=== PATIENT | female | born 1965 | race African-American/Black ===

== ENCOUNTER 2017-01-19 10:34 | Inpatient (IN) | payer BC ==
[~2017-01-19] VITALS: Ht 165.1 cm; Wt 97.2 kg
[~2017-01-19 10:34] MED LIST: AMLO10TA2 PO; AMLO5TAB4 PO; ASPI1TAB30 PO; ASPI81TA2 PO; ATOR20TA58 PO; BUTA1TAB23 PO; LABE200T2 PO; LISI-334 PO; LISI1TAB7 PO; METO25TA4 PO; NITR0.4T SL; PREG75CA PO; RANI150T6 PO; SPIR25TA3 PO
[2017-01-19 11:26] LABS: BASO % 1 % (0-3); EOS % 1 % (0-3); HEMATOCRIT 37.1 % (36.0-47.0); HEMOGLOBIN 12.2 g/dL (12.0-15.5); LYMPH # 1.2 x10^3/uL (1.0-4.8); LYMPH % 22 % (24-48); MEAN CORPUSCULAR HEMOGLOBIN 28 pg (25-35); MEAN CORPUSCULAR HGB CONC 33 g/dL (31-37); MEAN CORPUSCULAR VOLUME 84 fL (79-100); MONO % 6 % (0-9); NEUT % 71 % (31-73); PLATELET COUNT 292 x10^3/uL (140-400); RED BLOOD COUNT 4.41 x10^6/uL (3.50-5.40); RED CELL DISTRIBUTION WIDTH 15.8 % (11.5-14.5); WHITE BLOOD COUNT 5.4 x10^3/uL (4.0-11.0)
[2017-01-19] MEDS ORDERED: METOCLOPRAMIDE HCL 10 MG/2 ML VIAL. IV ONE (11:30)
[2017-01-19] MEDS ORDERED: diphenhydrAMINE 50 MG/ML VIAL IVP ONE (11:30)
[2017-01-19] MEDS ORDERED: IV NORMAL SALINE 500ML BAG 500 ML IV ONE (11:30)
[2017-01-19] MEDS ORDERED: KETOROLAC TROMETHAMINE 30 MG/ML INJ. IV ONE (11:30)
[2017-01-19 11:32] LABS: CALCIUM 8.7 mg/dL (8.5-10.1); CREATININE 1.2 mg/dL (0.6-1.0); GFR 57.3; POTASSIUM 3.4 mmol/L (3.5-5.1)
--- NOTE | 2017-01-19 11:36 | EKG ---
[facility] [address] [place] [address] Test Date: 2017-01-19 Test Time: 11:01:52 Pat Name: ESTELLA WILSON Department: Room: Gender: F [employer]: : 1965 Requested By: KOREY THAKKAR Order Number: [id number] Reading MD: Hay Browne Measurements Intervals [facility] Rate: 75 P: 0 KS: 184 QRS: 27 QRSD: 78 T: 61 QT: 378 QTc: 425 Interpretive Statements SINUS RHYTHM Electronically Signed On 02-01-2017 15:34:17 CDT by Hay Browne
--- NOTE | 2017-01-19 11:59 | RAD ---
CT of the head without contrast, 01/19/2017: History: High blood pressure, headache Comparison is made to a study from 11/28/2015. The ventricles are within normal limits in size. There is no shift of the midline structures. There is no evidence of acute intracranial hemorrhage or mass effect. There is limited visualization of the left maxillary sinus, however, it is at least partially opacified. IMPRESSION: 1. No acute intracranial abnormality is detected. 2. Left maxillary sinusitis. PQRS Compliance Statement: One or more of the following individualized dose reduction techniques were utilized for this examination: 1. Automated exposure control 2. Adjustment of the mA and/or kV according to patient size 3. Use of iterative reconstruction technique
[2017-01-19] MEDS ORDERED: hydrALAZINE 20 MG/ML VIAL. IVP ONE (12:30)
--- NOTE | 2017-01-19 12:45 | PHYS DOC ---
Past Medical History Past Medical History: Fibromyalgia, GERD, Hypertension, Other Additional Past Medical Histor: chronic knee pain, irreg peiords Past Surgical History: Cholecystectomy, , Tubal ligation, Other Additional Past Surgical Histo: right meniscus tear Alcohol Use: None Drug Use: None Adult General Chief Complaint Chief Complaint: HYPERTENSION HPI HPI This is a 51-year-old female who is sent here from Dr. Palma's office for hypertension that is uncontrolled as well as an ongoing migraine headache. Dr. Palma wanted a full workup regarding her headache symptoms. Upon arrival, the patient is speaking in complete senses and in no acute distress. She states she' s been suffering from a migraine headache for the last 6 days that has not relieved. She is unable to take her Excedrin Migraine medicine because her primary doctor requested her not to take it. She states she is compliant with her usual blood pressure medications and she takes lisinopril, amlodipine, and labetalol. She denies any chest pain or shortness of breath. She rates her pain a "16 out of 10" on the pain scale. Review of Systems Review of Systems Constitutional: Denies fever or chills [] Eyes: Denies change in visual acuity, redness, or eye pain [] HENT: Denies nasal congestion or sore throat [] Respiratory: Denies cough or shortness of breath [] Cardiovascular: No additional information not addressed in HPI [] GI: Denies abdominal pain, nausea, vomiting, bloody stools or diarrhea [] : Denies dysuria or hematuria [] Musculoskeletal: Denies back pain or joint pain [] Integument: Denies rash or skin lesions [] Neurologic: Has headache, denies focal weakness or sensory changes [] Endocrine: Denies polyuria or polydipsia [] Current Medications Current Medications Current Medications Medications (Trade) Dose Ordered Sig/Monty Start Time Stop Time Status Last Admin Dose Admin Diphenhydramine HCl (Benadryl) 25 mg 1X ONCE 01/19/17 11:30 01/19/17 11:32 DC 01/19/17 11:49 25 MG Hydralazine HCl 10 mg 10 mg 1X ONCE 01/19/17 12:30 01/19/17 12:31 DC Ketorolac Tromethamine (Toradol) 30 mg 1X ONCE 01/19/17 11:30 01/19/17 11:32 DC 01/19/17 11:45 30 MG Metoclopramide HCl 10 mg 10 mg 1X ONCE 01/19/17 11:30 01/19/17 11:32 DC 01/19/17 11:49 10 MG Nicardipine HCl/ Sodium Chloride (Cardene/Iv Sodium Chloride 0.9% 250ml) 270 ml @ 0 mls/hr CONT PRN 01/19/17 13:15 Ondansetron HCl (Zofran) 4 mg PRN Q8HRS PRN 01/19/17 13:15 01/20/17 13:14 Sodium Chloride (Iv Sodium Chloride 0.9% 500ml Bag) 500 ml @ 500 mls/hr 1X ONCE 01/19/17 11:30 01/19/17 12:29 DC 01/19/17 11:52 500 MLS/HR Allergies Allergies Allergies Coded Allergies Type Severity Reaction Last Updated Verified No Known Drug Allergies 09/10/16 No Physical Exam Physical Exam Constitutional: Well developed, well nourished, no acute distress, non-toxic appearance. [] HENT: Normocephalic, atraumatic, bilateral external ears normal, oropharynx moist, no oral exudates, nose normal. [] Eyes: PERRLA, EOMI, conjunctiva normal, no discharge. [] Neck: Normal range of motion, no tenderness, supple, no stridor. [] Cardiovascular:Heart rate regular rhythm, no murmur [] Lungs & Thorax: Bilateral breath sounds clear to auscultation [] Abdomen: Bowel sounds normal, soft, no tenderness, no masses, no pulsatile masses. [] Skin: Warm, dry, no erythema, no rash. [] Back: No tenderness, no CVA tenderness. [] Extremities: No tenderness, no cyanosis, no clubbing, ROM intact, no edema. [] Neurologic: Alert and oriented X 3, normal motor function, normal sensory function, no focal deficits noted. [] Psychologic: Affect normal, judgement normal, mood normal. [] Current Patient Data Vital Signs Vital Signs Date Time Temp Pulse Resp B/P Pulse Ox O2 Delivery O2 Flow Rate FiO2 01/19/17 10:47 97.9 82 20 183/116 99 Room Air 97.9 Lab Values Laboratory Tests Test 01/19/17 11:12 White Blood Count 5.4x10^3/uL (4.0-11.0) Red Blood Count 4.41x10^6/uL (3.50-5.40) Hemoglobin 12.2g/dL (12.0-15.5) Hematocrit 37.1% (36.0-47.0) Mean Corpuscular Volume 84fL (79-100) Mean Corpuscular Hemoglobin 28pg (25-35) Mean Corpuscular Hemoglobin Concent 33g/dL (31-37) Red Cell Distribution Width 15.8% (11.5-14.5) H Platelet Count 292x10^3/uL (140-400) Neutrophils (%) (Auto) 71% (31-73) Lymphocytes (%) (Auto) 22% (24-48) L Monocytes (%) (Auto) 6% (0-9) Eosinophils (%) (Auto) 1% (0-3) Basophils (%) (Auto) 1% (0-3) Neutrophils # (Auto) 3.8x10^3uL (1.8-7.7) Lymphocytes # (Auto) 1.2x10^3/uL (1.0-4.8) Monocytes # (Auto) 0.3x10^3/uL (0.0-1.1) Eosinophils # (Auto) 0.0x10^3/uL (0.0-0.7) Basophils # (Auto) 0.0x10^3/uL (0.0-0.2) Sodium Level 140mmol/L (136-145) Potassium Level 3.4mmol/L (3.5-5.1) L Chloride Level 104mmol/L (98-107) Carbon Dioxide Level 24mmol/L (21-32) Anion Gap 12 (6-14) Blood Urea Nitrogen 17mg/dL (7-20) Creatinine 1.2mg/dL (0.6-1.0) H Estimated GFR (Cockcroft-Gault) 57.3 Glucose Level 211mg/dL (70-99) H Calcium Level 8.7mg/dL (8.5-10.1) Troponin I Quantitative 0.043ng/mL (0.000-0.055) Laboratory Tests 01/19/17 11:12 Laboratory Tests 01/19/17 11:12 EKG EKG EKG as interpreted by me shows a sinus rhythm with rate of 75 bpm. There are no evidence of any acute ischemic findings. This EKG does not meet STEMI criteria. Intervals are normal. There is no ectopy. Radiology/Procedures Radiology/Procedures CT of the head without contrast, 01/19/2017: History: High blood pressure, headache Comparison is made to a study from 11/28/2015. The ventricles are within normal limits in size. There is no shift of the midline structures. There is no evidence of acute intracranial hemorrhage or mass effect. There is limited visualization of the left maxillary sinus, however, it is at least partially opacified. IMPRESSION: 1. No acute intracranial abnormality is detected. 2. Left maxillary sinusitis. PQRS Compliance Statement: One or more of the following individualized dose reduction techniques were utilized for this examination: 1. Automated exposure control 2. Adjustment of the mA and/or kV according to patient size 3. Use of iterative reconstruction technique Course & Med Decision Making Course & Med Decision Making Pertinent Labs and Imaging studies reviewed. (See chart for details) 51-year-old female has uncontrolled hypertension despite receiving an IV dose of IV hydralazine. Her laboratory workup is fairly unremarkable. I will be admitting her for uncontrolled blood pressure and persisting headache symptoms. I discussed the case with the hospitalist, Dr. Palma, who agreed to accept the patient for further evaluation and treatment. Nicardipine drip was ordered and the patient was transferred to the [facility] for further evaluation. It is important to note that the patient has not had any chest pain while in the department although she did mention she had a small brief episode of chest pain while walking into the ER. She last had a cardiac catheterization back in September that was negative for any vessel disease. Her EKG was unremarkable. Her troponin was slightly above negative at 0.04 but has been elevated slightly elevated in the past. I will order repeat troponins for the floor and she will be admitted to the [facility] for further evaluation and treatment Dragon Disclaimer Dragon Disclaimer This electronic medical record was generated, in whole or in part, using a voice recognition dictation system. Departure Departure Impression: Primary Impression: Hypertensive urgency Additional Impression: Headache Disposition: 09 ADMITTED INPATIENT Admitting Physician: Other Condition: STABLE Referrals: MORRIS PALMA MD (PCP) Problem Qualifiers KOREY THAKKAR DO Jan 19, 2017 12:45
[2017-01-19] MEDS ORDERED: ONDANSETRON PF 4 MG/2 ML VIAL. IV PRN (13:15)
[2017-01-19] MEDS ORDERED: NICARDIPINE HCL 50 MG in IV NORMAL SALINE 250ML 250 ML IV PRN (13:15)
--- NOTE | 2017-01-19 14:33 | ACF ---
Admission Forms Criteria HYPERTENSION Clinical Indications for Admission to Inpatient Care ( Place "X" for any and all applicable criteria): Admission is indicated for ANY ONE of the following(1)(2)(3)(4): [ ]I. Hypertensive emergency, with evidence of acute and progressing target organ disease as indicated by ANY ONE of the following: [ ]a) Hypertensive encephalopathy (eg, confusion, altered mental status) [ ]b) Cerebral infarction [ ]c) Intracranial hemorrhage [ ]d) Myocardial ischemia or infarction [ ]e) Pulmonary edema [ ]f) Aortic dissection [ ]g) Seizure [ ]h) Acute renal insufficiency [ ]i) Papilledema [ ]j) Microangiopathic hemolytic anemia [ ]II. Adrenergic crisis (eg, severe hypertension due to pheochromocytoma crisis, cocaine or amphetamine intoxication, or clonidine withdrawal) [X]III. Severe hypertension (SBP greater than 180 mmHg or DBP greater than 110 mmHg or greater than the 95th percentile for age, gender, and height in pediatric patients) that cannot be controlled (eg, to SBP less than 160 mmHg and DBP less than 100 mmHg in adults) by treatment with oral medication in emergency department or observation care Extended stay beyond goal length of stay may be needed for(11)(12)(13): [ ]a) Persistent hypertensive encephalopathy [ ]b) Continuation of pulmonary edema [ ]c) Recurring or persistent severe hypertension [ ]d) Target organ damage (eg, angina, stroke, aortic dissection) [ ]e) Associated renal insufficiency The original [facility] content created by [employer] has been revised. The portions of the content which have been revised are identified through the use of italic text or in bold, and [facility] has neither reviewed nor approved the modified material. All other unmodified content is copyright [facility]. Please see references footnoted in the original [facility] edition 2016 Admission Criteria Met?: Yes LES TOMLIN Jan 19, 2017 14:33
[2017-01-19 16:08] VITALS: BP 156/96
[2017-01-19] MEDS ORDERED: hydrALAZINE 20 MG/ML VIAL. IVP PRN (16:15)
[2017-01-19] MEDS ORDERED: ACETAMINOPHEN 325 MG TABLET. PO PRN (16:15)
[2017-01-19] MEDS ORDERED: POTASSIUM CHLORIDE 20 MEQ TABLET.ER. PO ONE (16:30)
[2017-01-19] MEDS: LISINOPRIL 20 MG TABLET PO SCH (17:00)
[2017-01-19 19:20] VITALS: BP 152/82
[2017-01-19] MEDS ORDERED: DICL100G28 TP (19:49)
[2017-01-19] MEDS ORDERED: DULO60CA44 PO (19:49)
[2017-01-19] MEDS ORDERED: OXYC1TAB7 PO (19:49)
[2017-01-19] MEDS: OXYCODONE/APAP 5/325 TABLET. PO PRN (20:18)
[2017-01-19] MEDS: FAMOTIDINE 20 MG TABLET. PO SCH (20:18)
[2017-01-19] MEDS: PREGABALIN 75 MG CAPSULE PO SCH (20:18)
[2017-01-19] MEDS: LABETALOL HCL 200 MG TABLET PO SCH (20:19)
[2017-01-19 23:05] VITALS: BP 133/87
[2017-01-20] MEDS ORDERED: KETOROLAC TROMETHAMINE 30 MG/ML INJ. IV PRN (01:15)
[2017-01-20 02:09] LABS: BASO % 1 % (0-3); EOS % 1 % (0-3); HEMATOCRIT 34.3 % (36.0-47.0); HEMOGLOBIN 11.2 g/dL (12.0-15.5); LYMPH # 1.4 x10^3/uL (1.0-4.8); LYMPH % 22 % (24-48); MEAN CORPUSCULAR HEMOGLOBIN 28 pg (25-35); MEAN CORPUSCULAR HGB CONC 33 g/dL (31-37); MEAN CORPUSCULAR VOLUME 87 fL (79-100); MONO % 8 % (0-9); NEUT % 69 % (31-73); PLATELET COUNT 252 x10^3/uL (140-400); RED BLOOD COUNT 3.96 x10^6/uL (3.50-5.40); RED CELL DISTRIBUTION WIDTH 16.2 % (11.5-14.5); WHITE BLOOD COUNT 6.2 x10^3/uL (4.0-11.0)
[2017-01-20 02:11] LABS: CALCIUM 8.3 mg/dL (8.5-10.1); CREATININE 1.4 mg/dL (0.6-1.0); POTASSIUM 3.9 mmol/L (3.5-5.1)
[2017-01-20 03:15] VITALS: BP 135/80
[2017-01-20 07:00] VITALS: BP 142/86
--- NOTE | 2017-01-20 07:55 | PDOC1 ---
History and Physical Date of Admission Date of Admission DATE: 01/19/17 Identification/Chief Complaint Chief Complaint Migraine headache, uncontrolled BP Problems: Source Source: Patient History of Present Illness History of Present Illness Pt was seen in clinic yesterday complaining of migraine headaches that started the previous week. Her blood pressure was uncontrolled despite her taking her normal medications. She was sent to the ER to see if relieving migraine pain would improve her blood pressure, but it did not. Pt was admitted for hypertension management. She says that she is feeling much better today, although she has still noticed her blood pressure is very labile. Past Medical History Cardiovascular: HTN, Hyperlipidemia Pulmonary: Bronchitis CENTRAL NERVOUS SYSTEM: Migraine GI: GERD Heme/Onc: No pertinent hx Hepatobiliary: No pertinent hx Psych: Depression Musculoskeletal: low back pain, Osteoarthritis Rheumatologic: Fibromyalgia Infectious disease: No pertinent hx ENT: No pertinent hx Renal/: No pertinent hx Endocrine: No pertinent hx Dermatology: No pertinent hx Past Surgical History Past Surgical History: Cholecystectomy, , Other Family History Family History: Cancer, Coronary Artery Disease, Heart Disease Social History Smoke: No ALCOHOL: none Drugs: None Current Problem List Problem List Problems Medical Problems: (1) Headache Status: Acute (2) Hypertensive urgency Status: Acute Problems: Current Medications Current Medications Current Medications Ketorolac Tromethamine (Toradol) 30 mg 1X ONCE IV Last administered on 11:45; Start 01/19/17 at 11:30; Stop 01/19/17 at 11:32; Status DC Diphenhydramine HCl (Benadryl) 25 mg 1X ONCE IVP Last administered on 11:49; Start 01/19/17 at 11:30; Stop 01/19/17 at 11:32; Status DC Metoclopramide HCl 10 mg 10 mg 1X ONCE IV Last administered on 01/19/17 11:49 ; Start 01/19/17 at 11:30; Stop 01/19/17 at 11:32; Status DC Sodium Chloride (Iv Sodium Chloride 0.9% 500ml Bag) 500 ml @ 500 mls/hr 1X ONCE IV Last administered on 01/19/17 11:52; Start 01/19/17 at 11:30; Stop 08/27 at 12:29; Status DC Hydralazine HCl 10 mg 10 mg 1X ONCE IVP Last administered on 01/19/17 13:17; Start 01/19/17 at 12:30; Stop 01/19/17 at 12:31; Status DC Nicardipine HCl/ Sodium Chloride (Cardene/Iv Sodium Chloride 0.9% 250ml) 270 ml @ 0 mls/hr CONT PRN IV SEE I/O RECORD Last administered on 01/19/17 13:25; Start 01/19/17 at 13:15; Stop 01/19/17 at 16:21; Status DC Ondansetron HCl (Zofran) 4 mg PRN Q8HRS PRN IV NAUSEA/VOMITING; Start 01/19/17 at 13:15; Stop 01/20/17 at 13:14 Amlodipine Besylate (Norvasc) 10 mg DAILY PO ; Start 01/20/17 at 09:00 Labetalol HCl (Trandate) 200 mg BID PO Last administered on 01/19/17 20:19; Start 01/19/17 at 21:00 Lisinopril (Prinivil) 20 mg DAILY PO ; Start 01/19/17 at 17:00 Potassium Chloride (Klor-Con) 40 meq 1X ONCE PO Last administered on 18:20; Start 01/19/17 at 16:30; Stop 01/19/17 at 16:31; Status DC Hydralazine HCl (Apresoline) 10 mg PRN Q4HRS PRN IVP ELEVATED BP, SEE COMMENTS Last administered on 01/19/17 18:30; Start 01/19/17 at 16:15 Acetaminophen (Tylenol) 650 mg PRN Q6HRS PRN PO HEADACHE; Start 01/19/17 at 16: 15 Aspirin (Children'S Aspirin) 81 mg DAILY PO ; Start 01/20/17 at 09:00 Oxycodone/ Acetaminophen (Percocet 5/325) 1 tab PRN Q6HRS PRN PO PAIN Last administered on 01/19/17 20:18; Start 01/19/17 at 20:00 Pregabalin (Lyrica) 150 mg BID PO Last administered on 01/19/17 20:18; Start 01/19/17 at 21:00 Duloxetine HCl (Cymbalta) 60 mg DAILY PO ; Start 01/20/17 at 09:00 Famotidine (Pepcid) 20 mg QHS PO Last administered on 01/19/17 20:18; Start at 21:00 Ketorolac Tromethamine (Toradol) 30 mg PRN Q6HRS PRN IV PAIN Last administered on 01/20/17 01:20; Start 01/20/17 at 01:15; Stop 01/20/17 at 07:40; Status DC Active Scripts Active Atorvastatin Calcium 20 Mg Tablet 1 Tab PO DAILY Lyrica (Pregabalin) 75 Mg Capsule 150 Mg PO BID 30 Days Nitrostat (Nitroglycerin) 0.4 Mg Tab.subl 0.4 Mg SL PRN Q5MIN PRN Lisinopril 20 Mg Tablet 20 Mg PO DAILY Labetalol Hcl 200 Mg Tablet 200 Mg PO BID 30 Days Amlodipine Besylate 10 Mg Tablet 10 Mg PO DAILY 30 Days Reported Diclofenac Sodium 100 Gm Gel..gram. 1 Joel TP PRN Q6HRS PRN Duloxetine Hcl 60 Mg Capsule.dr 1 Tab PO DAILY Oxycodone-Acetaminophen 5-325 (Oxycodone Hcl/Acetaminophen) 1 Each Tablet 1 Tab PO PRN Q6HRS PRN Spironolactone 25 Mg Tablet 1 Tab PO DAILY Aspirin 81 Mg Tab.chew 1 Tab PO DAILY Zantac (Ranitidine Hcl) 150 Mg Tablet 150 Mg PO DAILY not given during this stay, may begin 12/01/15 at 9 am Allergies Allergies: Coded Allergies: No Known Drug Allergies (Unverified , 09/10/16) ROS General: YES: Chills, Fatigue PSYCHOLOGICAL ROS: No: Anxiety, Depression Eyes: No Decreased vision, No Eye Pain HEENT: No: Nasal congestion, Sore Throat ALLERGY AND IMMUNOLOGY: No: Hives, Post Nasal Drip Hematological and Lymphatic: No: Bleeding Problems, Blood Clots Respiratory: YES: Shortness of breath, No: Cough Cardiovascular: No Chest Pain, No Palpitations Gastrointestinal: No Abdominal Pain, No Constipation, No Diarrhea, No Nausea, No Vomiting Genitourinary: No Dysuria, No Urgency Musculoskeletal: Yes Joint Pain, Yes Joint Stiffness, Yes Joint Swelling, Yes Muscle Pain Neurological: No Impaired Coord/balance, No Numbness/Tingling Skin: No Rash, No Skin Lesion Changes Physical Exam General: Alert, Oriented X3, Cooperative, No acute distress HEENT: Atraumatic, PERRLA, EOMI, Mucous membr. moist/pink Lungs: Clear to auscultation, Normal air movement Heart: RRR, no rubs, no gallops, no murmurs Abdomen: Normal bowel sounds, Soft, No tenderness, No hepatosplenomegaly Extremities: No clubbing, No cyanosis, No edema Skin: No rashes, No breakdown, No significant lesion Neuro: Normal speech, Cranial nerves 3-12 NL Psych/Mental Status: Mental status NL, Mood NL Vitals Vitals Vital Signs Date Time Temp Pulse Resp B/P Pulse Ox O2 Delivery O2 Flow Rate FiO2 01/20/17 03:15 97.9 89 18 135/80 97 Room Air 97.9 Labs Labs Laboratory Tests Test 01/19/17 11:12 01/19/17 18:50 01/20/17 01:20 White Blood Count 5.4x10^3/uL (4.0-11.0) 6.2x10^3/uL (4.0-11.0) Red Blood Count 4.41x10^6/uL (3.50-5.40) 3.96x10^6/uL (3.50-5.40) Hemoglobin 12.2g/dL (12.0-15.5) 11.2g/dL (12.0-15.5) Hematocrit 37.1% (36.0-47.0) 34.3% (36.0-47.0) Mean Corpuscular Volume 84fL (79-100) 87fL (79-100) Mean Corpuscular Hemoglobin 28pg (25-35) 28pg (25-35) Mean Corpuscular Hemoglobin Concent 33g/dL (31-37) 33g/dL (31-37) Red Cell Distribution Width 15.8% (11.5-14.5) 16.2% (11.5-14.5) Platelet Count 292x10^3/uL (140-400) 252x10^3/uL (140-400) Neutrophils (%) (Auto) 71% (31-73) 69% (31-73) Lymphocytes (%) (Auto) 22% (24-48) 22% (24-48) Monocytes (%) (Auto) 6% (0-9) 8% (0-9) Eosinophils (%) (Auto) 1% (0-3) 1% (0-3) Basophils (%) (Auto) 1% (0-3) 1% (0-3) Neutrophils # (Auto) 3.8x10^3uL (1.8-7.7) 4.3x10^3uL (1.8-7.7) Lymphocytes # (Auto) 1.2x10^3/uL (1.0-4.8) 1.4x10^3/uL (1.0-4.8) Monocytes # (Auto) 0.3x10^3/uL (0.0-1.1) 0.5x10^3/uL (0.0-1.1) Eosinophils # (Auto) 0.0x10^3/uL (0.0-0.7) 0.0x10^3/uL (0.0-0.7) Basophils # (Auto) 0.0x10^3/uL (0.0-0.2) 0.0x10^3/uL (0.0-0.2) Sodium Level 140mmol/L (136-145) 142mmol/L (136-145) Potassium Level 3.4mmol/L (3.5-5.1) 3.9mmol/L (3.5-5.1) Chloride Level 104mmol/L (98-107) 107mmol/L (98-107) Carbon Dioxide Level 24mmol/L (21-32) 27mmol/L (21-32) Anion Gap 12 (6-14) 8 (6-14) Blood Urea Nitrogen 17mg/dL (7-20) 23mg/dL (7-20) Creatinine 1.2mg/dL (0.6-1.0) 1.4mg/dL (0.6-1.0) Estimated GFR (Cockcroft-Gault) 57.3 48.0 Glucose Level 211mg/dL (70-99) 136mg/dL (70-99) Calcium Level 8.7mg/dL (8.5-10.1) 8.3mg/dL (8.5-10.1) Troponin I Quantitative 0.043ng/mL (0.000-0.055) 0.052ng/mL (0.000-0.055) 0.061ng/mL (0.000-0.055) Laboratory Tests Test 01/19/17 11:12 01/19/17 18:50 01/20/17 01:20 White Blood Count 5.4x10^3/uL (4.0-11.0) 6.2x10^3/uL (4.0-11.0) Red Blood Count 4.41x10^6/uL (3.50-5.40) 3.96x10^6/uL (3.50-5.40) Hemoglobin 12.2g/dL (12.0-15.5) 11.2g/dL (12.0-15.5) Hematocrit 37.1% (36.0-47.0) 34.3% (36.0-47.0) Mean Corpuscular Volume 84fL (79-100) 87fL (79-100) Mean Corpuscular Hemoglobin 28pg (25-35) 28pg (25-35) Mean Corpuscular Hemoglobin Concent 33g/dL (31-37) 33g/dL (31-37) Red Cell Distribution Width 15.8% (11.5-14.5) 16.2% (11.5-14.5) Platelet Count 292x10^3/uL (140-400) 252x10^3/uL (140-400) Neutrophils (%) (Auto) 71% (31-73) 69% (31-73) Lymphocytes (%) (Auto) 22% (24-48) 22% (24-48) Monocytes (%) (Auto) 6% (0-9) 8% (0-9) Eosinophils (%) (Auto) 1% (0-3) 1% (0-3) Basophils (%) (Auto) 1% (0-3) 1% (0-3) Neutrophils # (Auto) 3.8x10^3uL (1.8-7.7) 4.3x10^3uL (1.8-7.7) Lymphocytes # (Auto) 1.2x10^3/uL (1.0-4.8) 1.4x10^3/uL (1.0-4.8) Monocytes # (Auto) 0.3x10^3/uL (0.0-1.1) 0.5x10^3/uL (0.0-1.1) Eosinophils # (Auto) 0.0x10^3/uL (0.0-0.7) 0.0x10^3/uL (0.0-0.7) Basophils # (Auto) 0.0x10^3/uL (0.0-0.2) 0.0x10^3/uL (0.0-0.2) Sodium Level 140mmol/L (136-145) 142mmol/L (136-145) Potassium Level 3.4mmol/L (3.5-5.1) 3.9mmol/L (3.5-5.1) Chloride Level 104mmol/L (98-107) 107mmol/L (98-107) Carbon Dioxide Level 24mmol/L (21-32) 27mmol/L (21-32) Anion Gap 12 (6-14) 8 (6-14) Blood Urea Nitrogen 17mg/dL (7-20) 23mg/dL (7-20) Creatinine 1.2mg/dL (0.6-1.0) 1.4mg/dL (0.6-1.0) Estimated GFR (Cockcroft-Gault) 57.3 48.0 Glucose Level 211mg/dL (70-99) 136mg/dL (70-99) Calcium Level 8.7mg/dL (8.5-10.1) 8.3mg/dL (8.5-10.1) Troponin I Quantitative 0.043ng/mL (0.000-0.055) 0.052ng/mL (0.000-0.055) 0.061ng/mL (0.000-0.055) VTE Prophylaxis Ordered VTE Prophylaxis Devices: Yes VTE Pharmacological Prophylaxi: No Assessment/Plan Assessment/Plan Pt is a 51yo AAF admitted for malignant hypertension 1)Malignant HTN- pt started on Cardene gtt in ER; better controlled this morning. Pt continued on her home medications of Amlodipine 10mg, Labetalol 200mg BID, Lisinopril 20mg and has Hydralazine prn. Cardiology consulted. Appreciate recommendations as pt's BP has been very difficult to control outpatient. 2)Elevated troponin- likely 2/2 above. Pt had heart catheterization 09/25 that was normal 3)Hyperglycemia- no history of diabetes, HbA1C pending 4)Fibromyalgia/OA- pt continued on Lyrica 150mg BID and Percocet 5/325mg 5)Depression- pt continued on Duloxetine 60mg 6)Anemia- mild, no active bleeding 7)CKD- Cr slightly worsened at 1.4, baseline has been at 1.2. Electrolytes WNL. CTM MORRIS PALMA MD Jan 20, 2017 07:55
[2017-01-20] MEDS: LABETALOL HCL 200 MG TABLET PO SCH ×2 (08:56→20:10)
[2017-01-20] MEDS: DULOXETINE HCL 30 MG CAPSULE.DR. PO SCH (08:57)
[2017-01-20] MEDS: PREGABALIN 75 MG CAPSULE PO SCH ×2 (08:57→20:10)
[2017-01-20] MEDS: AMLODIPINE BESYLATE 10 MG TABLET. PO SCH (08:57)
[2017-01-20] MEDS: ASPIRIN CHEWABLE 81 MG TABLET. PO SCH (08:58)
[2017-01-20] MEDS: LISINOPRIL 20 MG TABLET PO SCH (08:58)
--- NOTE | 2017-01-20 10:04 | PDOC2 ---
CARDIAC CONSULT DATE OF CONSULT Date of Consult DATE: 01/20/17 TIME: 10:03 REASON FOR CONSULT Reason for Consult: malignant HTN REFERRING PHYSICIAN Referring Physician: Dr. Terrence Garcia SOURCE Source: Chart review, Patient HISTORY OF PRESENT ILLNESS HISTORY OF PRESENT ILLNESS 51 year old female with a history of HTN that has been difficult to control. Has had headache and elevated BP readings since last but did not present until yesterday as she was concerned about admission. BP 183-196/116-120 POA and started on nicardipine gtt which controlled BP and was discontinued. Reports chest heaviness with elevated BP which has since resolved; mild increase in troponin level not consistent with AMI and no acute changes in EKG. Recent history of dyspnea and lower extremity edema that resolved at night. CT head negative for acute findings in ER. Reason for Visit: HTN PAST MEDICAL HISTORY Cardiovascular: HTN, Hyperlipidemia CENTRAL NERVOUS SYSTEM: Other (none) GI: GERD, Other (obesity) Heme/Onc: No pertinent hx Hepatobiliary: No pertinent hx Psych: No pertinent hx Musculoskeletal: Osteoarthritis Rheumatologic: Fibromyalgia Infectious disease: No pertinent hx ENT: No pertinent hx Renal/: No pertinent hx Endocrine: No pertinent hx Dermatology: No pertinent hx PAST SURGICAL HISTORY Past Surgical History: Cholecystectomy, (X 2) FAMILY HISTORY Family History: Cancer, Heart Disease SOCIAL HISTORY Smoke: No ALCOHOL: none Drugs: None Lives: with Family CURRENT MEDICATIONS CURRENT MEDICATIONS Current Medications Medications (Trade) Dose Ordered Sig/Monty Route PRN Reason Start Time Stop Time Status Last Admin Dose Admin Ketorolac Tromethamine (Toradol) 30 mg 1X ONCE IV 01/19/17 11:30 01/19/17 11:32 DC 01/19/17 11:45 Diphenhydramine HCl (Benadryl) 25 mg 1X ONCE IVP 01/19/17 11:30 01/19/17 11:32 DC 01/19/17 11:49 Metoclopramide HCl 10 mg 10 mg 1X ONCE IV 01/19/17 11:30 01/19/17 11:32 DC 01/19/17 11:49 Sodium Chloride (Iv Sodium Chloride 0.9% 500ml Bag) 500 ml @ 500 mls/hr 1X ONCE IV 01/19/17 11:30 01/19/17 12:29 DC 01/19/17 11:52 Hydralazine HCl 10 mg 10 mg 1X ONCE IVP 01/19/17 12:30 01/19/17 12:31 DC 01/19/17 13:17 Nicardipine HCl/ Sodium Chloride (Cardene/Iv Sodium Chloride 0.9% 250ml) 270 ml @ 0 mls/hr CONT PRN IV SEE I/O RECORD 01/19/17 13:15 01/19/17 16:21 DC 01/19/17 13:25 Amlodipine Besylate (Norvasc) 10 mg DAILY PO 01/20/17 09:00 01/20/17 08:57 Labetalol HCl (Trandate) 200 mg BID PO 01/19/17 21:00 01/20/17 08:56 Lisinopril (Prinivil) 20 mg DAILY PO 01/19/17 17:00 01/20/17 08:58 Potassium Chloride (Klor-Con) 40 meq 1X ONCE PO 01/19/17 16:30 01/19/17 16:31 DC 01/19/17 18:20 Hydralazine HCl (Apresoline) 10 mg PRN Q4HRS PRN IVP ELEVATED BP, SEE COMMENTS 01/19/17 16:15 01/19/17 18:30 Aspirin (Children'S Aspirin) 81 mg DAILY PO 01/20/17 09:00 01/20/17 08:58 Oxycodone/ Acetaminophen (Percocet 5/325) 1 tab PRN Q6HRS PRN PO PAIN 01/19/17 20:00 01/19/17 20:18 Pregabalin (Lyrica) 150 mg BID PO 01/19/17 21:00 01/20/17 08:57 Duloxetine HCl (Cymbalta) 60 mg DAILY PO 01/20/17 09:00 01/20/17 08:57 Famotidine (Pepcid) 20 mg QHS PO 01/19/17 21:00 01/19/17 20:18 Ketorolac Tromethamine (Toradol) 30 mg PRN Q6HRS PRN IV PAIN 01/20/17 01:15 01/20/17 07:40 DC 01/20/17 01:20 ALLERGIES ALLERGIES: Coded Allergies: No Known Drug Allergies (Unverified , 09/10/16) ROS Review of System 14 point review with pertinent positives in HPI PHYSICAL EXAM General: Alert, Oriented X3, Cooperative, No acute distress HEENT: Atraumatic, PERRLA Lungs: Clear to auscultation Heart: Regular rate, Normal S1, Normal S2, No murmurs, Other (no carotid bruits ) Abdomen: Normal bowel sounds, Soft Extremities: No edema, Normal pulses Skin: No rashes Neuro: Normal speech Psych/Mental Status: Mental status NL, Mood NL MUSCULOSKELETAL: No deformity VITALS VITALS Vital Signs Date Time Temp Pulse Resp B/P Pulse Ox O2 Delivery O2 Flow Rate FiO2 01/20/17 08:58 89 142/86 01/20/17 08:00 Room Air 01/20/17 07:00 97.6 18 98 97.6 LABS Lab: Laboratory Tests Test 01/19/17 11:12 01/19/17 18:50 01/20/17 01:20 White Blood Count 5.4x10^3/uL (4.0-11.0) 6.2x10^3/uL (4.0-11.0) Red Blood Count 4.41x10^6/uL (3.50-5.40) 3.96x10^6/uL (3.50-5.40) Hemoglobin 12.2g/dL (12.0-15.5) 11.2g/dL (12.0-15.5) Hematocrit 37.1% (36.0-47.0) 34.3% (36.0-47.0) Mean Corpuscular Volume 84fL (79-100) 87fL (79-100) Mean Corpuscular Hemoglobin 28pg (25-35) 28pg (25-35) Mean Corpuscular Hemoglobin Concent 33g/dL (31-37) 33g/dL (31-37) Red Cell Distribution Width 15.8% (11.5-14.5) 16.2% (11.5-14.5) Platelet Count 292x10^3/uL (140-400) 252x10^3/uL (140-400) Neutrophils (%) (Auto) 71% (31-73) 69% (31-73) Lymphocytes (%) (Auto) 22% (24-48) 22% (24-48) Monocytes (%) (Auto) 6% (0-9) 8% (0-9) Eosinophils (%) (Auto) 1% (0-3) 1% (0-3) Basophils (%) (Auto) 1% (0-3) 1% (0-3) Neutrophils # (Auto) 3.8x10^3uL (1.8-7.7) 4.3x10^3uL (1.8-7.7) Lymphocytes # (Auto) 1.2x10^3/uL (1.0-4.8) 1.4x10^3/uL (1.0-4.8) Monocytes # (Auto) 0.3x10^3/uL (0.0-1.1) 0.5x10^3/uL (0.0-1.1) Eosinophils # (Auto) 0.0x10^3/uL (0.0-0.7) 0.0x10^3/uL (0.0-0.7) Basophils # (Auto) 0.0x10^3/uL (0.0-0.2) 0.0x10^3/uL (0.0-0.2) Sodium Level 140mmol/L (136-145) 142mmol/L (136-145) Potassium Level 3.4mmol/L (3.5-5.1) 3.9mmol/L (3.5-5.1) Chloride Level 104mmol/L (98-107) 107mmol/L (98-107) Carbon Dioxide Level 24mmol/L (21-32) 27mmol/L (21-32) Anion Gap 12 (6-14) 8 (6-14) Blood Urea Nitrogen 17mg/dL (7-20) 23mg/dL (7-20) Creatinine 1.2mg/dL (0.6-1.0) 1.4mg/dL (0.6-1.0) Estimated GFR (Cockcroft-Gault) 57.3 48.0 Glucose Level 211mg/dL (70-99) 136mg/dL (70-99) Calcium Level 8.7mg/dL (8.5-10.1) 8.3mg/dL (8.5-10.1) Troponin I Quantitative 0.043ng/mL (0.000-0.055) 0.052ng/mL (0.000-0.055) 0.061ng/mL (0.000-0.055) IMAGES IMAGES 11/2015: Renal Artery Duplex: The proximal and mid aspects of the right renal artery are obscured due to bowel gas. The distal renal artery demonstrates a peak systolic velocity is 73 cm/second and a normal renal artery to aorta velocity ratio is 0.82. The proximal left renal arteries obscured due to bowel gas. The peak systolic velocities within the mid and distal aspect of the left renal artery are 60 cm/second and 60 cm/second, respectively. There is a normal left renal artery to aorta velocity ratio is 0.67. There are normal renal resistive indices. The renal veins are patent. IMPRESSION No Doppler evidence of hemodynamically significant stenosis within the distal right renal artery or mid and distal left renal artery. The proximal bilateral renal arteries and mid aspect of the right renal artery are obscured due to bowel gas. EKG EKG SR; no acute changes ECHOCARDIOGRAM ECHOCARDIOGRAM 09/10/2016: TTE: The left ventricle is normal size. The left ventricular systolic function is normal and the ejection fraction is within normal range. The Ejection Fraction is 55-60%. There is mild concentric left ventricular hypertrophy. There is no significant aortic valvular stenosis. Doppler and Color Flow revealed no significant aortic regurgitation. Doppler and Color Flow revealed no mitral valve regurgitation noted. Doppler and Color Flow revealed mild tricuspid regurgitation. The PA pressure was estimated at 26 mmHg. The ascending aorta is mildly dilated at 3.3. cm. HEART CATH HEART CATH 09/2016: Findings. Hemodynamics. Left ventricular pressure 142/12, aortic root pressure 138/86. Left ventricle. Left ventriculogram showed normal left ventricular systolic function with an ejection fraction of greater than 55% and no significant mitral regurgitation. Coronaries. Left main. The left main had no lesions. Left anterior descending. The LAD was a large vessel. No lesions were present. Left circumflex. The left circumflex was a moderately large vessel with no lesions. Right coronary artery. The right coronary was a small vessel with an anomalous origin near the ostium of the left main. No lesions greater than 25% were identified. <Conclusion> Left main, left anterior descending and left circumflex vessels with no angiographic evidence of coronary artery disease. 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 Normal left ventricular systolic function. ASSESSMENT/PLAN ASSESSMENT/PLAN 1. malignant HTN, POA improved with nicardipine which has been weaned off no clear YARELI on 11/2015, though some portions not well visualized increase labetalol to 400 mg BID and give extra 200 mg dose this a.m.; HR will tolerate if additional med needed, consider adding hydralazine 2. HLD continue statin therapy 3. obesity life style modifications would be beneficial Problems: VINCENT MARTINEZ APRN Jan 20, 2017 10:04
[2017-01-20] MEDS ORDERED: LABETALOL HCL 200 MG TABLET PO ONE (10:15)
[2017-01-20 11:26] VITALS: BP 129/88
[2017-01-20 15:26] VITALS: BP 125/75
[2017-01-20 19:45] VITALS: BP 120/68
[2017-01-20] MEDS: FAMOTIDINE 20 MG TABLET. PO SCH (20:10)
[2017-01-20] MEDS: OXYCODONE/APAP 5/325 TABLET. PO PRN (20:11)
[2017-01-20 22:51] VITALS: BP 117/56
[2017-01-21 02:56] VITALS: BP 121/78
[2017-01-21 07:00] VITALS: BP 132/84
[2017-01-21] MEDS ORDERED: Labetalol Hcl PO (08:12)
[2017-01-21] MEDS ORDERED: DOXY100C2 PO (08:12)
[2017-01-21] MEDS ORDERED: LORA10TA3 PO (08:12)
[2017-01-21] MEDS ORDERED: FLUT16SP NS (08:12)
--- NOTE | 2017-01-21 08:19 | PDOC3 ---
Discharge Summary* Date of Admission: Jan 19, 2017 Date of Discharge: Jan 21, 2017 Admitting Diagnosis Problems Medical Problems: (1) Headache Status: Acute (2) Hypertensive urgency Status: Acute Final Diagnosis Malignant HTN, Elevated troponin 2/2 previous, Hyperglycemia- normal HbA1C, Fibromyalgia, OA, Depression, Anemia, Migraine headache 2/2 sinusitis, Anemia- mild, CKD CONSULTS Cardiology Procedures CT Head- left maxillary sinusitis Brief Hospital Course DISCHARGE PHYSICAL EXAM General: Alert, Oriented X3, Cooperative, No acute distress HEENT: Atraumatic, PERRLA, EOMI, Mucous membr. moist/pink Lungs: Clear to auscultation, Normal air movement Heart: RRR, no rubs, no gallops, no murmurs Abdomen: Normal bowel sounds, Soft, No tenderness, No hepatosplenomegaly Extremities: No clubbing, No cyanosis, No edema Skin: No rashes, No breakdown, No significant lesion Neuro: Normal speech, Cranial nerves 3-12 NL Psych/Mental Status: Mental status NL, Mood NL Pt is a 51yo AAF admitted for malignant hypertension 1)Malignant HTN- pt started on Cardene gtt in ER and Labetalol was increased to 400mg BID. BP much better improved. Will discharge on increased dose of Labetalol and home medications of Amlodipine 10mg and Lisinopril 20mg. Cardiology was following. 2)Elevated troponin- likely 2/2 above. Pt had heart catheterization 09/25 that was normal 3)Hyperglycemia- HbA1C this admission 5.2 4)Fibromyalgia/OA- pt continued on Lyrica 150mg BID and Percocet 5/325mg 5)Depression- pt continued on Duloxetine 60mg 6)Anemia- mild, no active bleeding 7)CKD- Cr slightly worsened at 1.4, baseline has been at 1.2. Electrolytes WNL. 8)Migraine Headache- likely 2/2 sinusitis. Will discharge on Doxycycline, Loratadine and Flonase Disposition/Orders: D/C to Home CONDITION AT DISCHARGE: Improved, Stable Diet: Cardiac Scheduled ([Labetalol Hcl]) 400 MG PO BID Amlodipine Besylate (Amlodipine Besylate) 10 MG PO DAILY Aspirin (Aspirin) 1 TAB PO DAILY (Reported) Doxycycline Hyclate (Doxycycline Hyclate) 1 CAP PO BID Duloxetine Hcl (Duloxetine Hcl) 1 TAB PO DAILY (Reported) Fluticasone Propionate (Fluticasone Propionate Nasal [place]) 2 SPRAY NS DAILY Lisinopril (Lisinopril) 20 MG PO DAILY Loratadine (Loratadine) 1 TAB PO DAILY Pregabalin (Lyrica) 150 MG PO BID Scheduled PRN Nitroglycerin (Nitrostat) 0.4 MG SL PRN Q5MIN PRN PRN CHEST PAIN Oxycodone Hcl/Acetaminophen (Oxycodone-Acetaminophen 5-325) 1 TAB PO PRN Q6HRS PRN PRN PAIN (Reported) Discontinued Medications Atorvastatin Calcium (Atorvastatin Calcium) 1 TAB PO DAILY Diclofenac Sodium (Diclofenac Sodium) 1 ASHLEY TP PRN Q6HRS PRN PRN PAIN (Reported ) Labetalol Hcl (Labetalol Hcl) 200 MG PO BID Ranitidine Hcl (Zantac) 150 MG PO DAILY (Reported) Spironolactone (Spironolactone) 1 TAB PO DAILY (Reported) PCP Follow up with Dr. Palma in 5-7 days Time Spent Total time spent with patient [] minutes for coordination of care, counseling, and education. MORRIS PALMA MD Jan 21, 2017 08:19
[2017-01-21] MEDS: LABETALOL HCL 200 MG TABLET PO SCH (10:27)
[2017-01-21] MEDS: AMLODIPINE BESYLATE 10 MG TABLET. PO SCH (10:27)
[2017-01-21 10:28] VITALS: BP 132/84
[2017-01-21] MEDS: LISINOPRIL 20 MG TABLET PO SCH (10:28)
[2017-01-21] MEDS: ASPIRIN CHEWABLE 81 MG TABLET. PO SCH (10:28)
[2017-01-21] MEDS: PREGABALIN 75 MG CAPSULE PO SCH (10:28)
[2017-01-21] MEDS: OXYCODONE/APAP 5/325 TABLET. PO PRN (10:29)
[2017-01-21] MEDS: DULOXETINE HCL 30 MG CAPSULE.DR. PO SCH (10:29)
--- NOTE | 2017-01-21 10:50 | PDOC ---
CARDIO Progress Notes Date and Time Date of Service 01/21/2017 Time of Evaluation 1048 Subjective Subjective: No Chest Pain, No shortness of breath, No Palpitations, No Dizziness Vitals Vitals Vital Signs Date Time Temp Pulse Resp B/P Pulse Ox O2 Delivery O2 Flow Rate FiO2 01/21/17 10:29 18 98 Room Air 01/21/17 10:28 86 132/84 01/21/17 07:00 97.9 97.9 Weight Weight [ ] Input and Output Intake and Output Intake and Output 01/21/17 07:00 Intake Total 350 ml Balance 350 ml Intake Oral 350 ml # Voids 5 Physical Exam HEENT: Neck Supple W Full Motion Chest: Symmetric LUNGS: Clear to Auscultation Heart: S1S2, RRR, no murmurs Abdomen: Soft N/T Extremities: No Edema Neurology: alert, oriented, follow commands Assessment Assessment 1. malignant HTN, POA significant improvement in BP with increased dosage of BB cautioned about sudden position changes, fatigue due to BB and depression if additional med needed, consider adding hydralazine 2. HLD continue statin therapy 3. obesity life style modifications would be beneficial Agree with discharge f/u with cardiology VINCENT Jerez FREEZER OPERATOR Jan 21, 2017 10:50
== END 2017-01-21 11:15 | disposition home or self-care (01) | DRG 305 ==
LOC: ER 10:34 → 2 NORTH 13:03
PROVIDERS: ADMIT Family Medicine; ATTEND Family Medicine
DX: I16.0 Hypertensive urgency (principal); I12.9 Hypertensive chronic kidney disease with stage 1 through stage 4 chronic kidney disease, or unspecified chronic kidney disease; N18.9 Chronic kidney disease, unspecified; D64.9 Anemia, unspecified; E66.9 Obesity, unspecified; E78.5 Hyperlipidemia, unspecified; F32.9 Major depressive disorder, single episode, unspecified; G43.909 Migraine, unspecified, not intractable, without status migrainosus; J32.0 Chronic maxillary sinusitis; K21.9 Gastro-esophageal reflux disease without esophagitis; M79.7 Fibromyalgia; G89.29 Other chronic pain; R73.9 Hyperglycemia, unspecified; J32.9 Chronic sinusitis, unspecified; M19.90 Unspecified osteoarthritis, unspecified site; M25.569 Pain in unspecified knee; M54.5 Low back pain; Z90.49 Acquired absence of other specified parts of digestive tract; Z82.49 Family history of ischemic heart disease and other diseases of the circulatory system; Z98.51 Tubal ligation status; Z68.35 Body mass index [BMI] 35.0-35.9, adult
CPT/HCPCS: 36415; 70450; 80048; 83036; 84484; 85027; 93005; 96361; 96365; 96375; J0360; J1200; J1885; J2765; J7040; J7050; 99285-25; J7030

== ENCOUNTER 2017-04-15 12:56 | Emergency (ER) | payer BC ==
[~2017-04-15 12:56] MED LIST changes: +ASPI-630 PO; -ASPI81TA2 PO; +DICL100G28 TP; +DOXY100C2 PO; +DULO60CA44 PO; +FLUT16SP NS; +LORA10TA3 PO; +Labetalol Hcl PO; +OXYC1TAB7 PO
[2017-04-15] MEDS ORDERED: OXYMETAZOLINE 0.05% NASAL SPRAY 30ML BOTTLE. NS ONE (13:46)
[2017-04-15] MEDS ORDERED: COCAINE 4% TOPICAL SOLUTION TP ONE (13:46)
[2017-04-15 14:39] LABS: HEMATOCRIT 34.7 % (36.0-47.0); HEMOGLOBIN 11.4 g/dL (12.0-15.5); RED BLOOD COUNT 4.01 x10^6/uL (3.50-5.40); WHITE BLOOD COUNT 4.6 x10^3/uL (4.0-11.0)
[2017-04-15 14:50] LABS: INR 1.1 (0.8-1.1); PROTHROMBIN TIME PATIENT 13.9 SEC (11.7-14.0)
[2017-04-15 15:06] VITALS: BP 133/92
[2017-04-15] MEDS ORDERED: CEPH-264 PO (16:47)
--- NOTE | 2017-04-15 16:47 | PHYS DOC ---
Past Medical History Past Medical History: Fibromyalgia, GERD, Hypertension, Other Additional Past Medical Histor: chronic knee pain,irreg periods,nose bleeds Past Surgical History: Cholecystectomy, , Tubal ligation, Other Additional Past Surgical Histo: right meniscus tear Alcohol Use: None Drug Use: None Adult General Chief Complaint Chief Complaint: NOSEBLEED HPI HPI Patient is a 51 year old [f__sex] who presents with [] Review of Systems Review of Systems Constitutional: Denies fever or chills [] Eyes: Denies change in visual acuity, redness, or eye pain [] HENT: Denies nasal congestion or sore throat [] Respiratory: Denies cough or shortness of breath [] Cardiovascular: No additional information not addressed in HPI [] GI: Denies abdominal pain, nausea, vomiting, bloody stools or diarrhea [] : Denies dysuria or hematuria [] Musculoskeletal: Denies back pain or joint pain [] Integument: Denies rash or skin lesions [] Neurologic: Denies headache, focal weakness or sensory changes [] Endocrine: Denies polyuria or polydipsia [] Current Medications Current Medications Current Medications Medications (Trade) Dose Ordered Sig/Monty Start Time Stop Time Status Last Admin Dose Admin Cocaine HCl 4 ml STK-MED ONCE 04/15/17 13:46 04/15/17 13:47 DC Oxymetazoline HCl (Afrin) 120 spray STK-MED ONCE 04/15/17 13:46 04/15/17 13:47 DC Allergies Allergies Allergies Coded Allergies Type Severity Reaction Last Updated Verified No Known Drug Allergies 09/10/16 No Physical Exam Physical Exam Constitutional: Well developed, well nourished, no acute distress, non-toxic appearance. [] HENT: Normocephalic, atraumatic, bilateral external ears normal, oropharynx moist, no oral exudates, nose normal. [] Eyes: PERRLA, EOMI, conjunctiva normal, no discharge. [] Neck: Normal range of motion, no tenderness, supple, no stridor. [] Cardiovascular:Heart rate regular rhythm, no murmur [] Lungs & Thorax: Bilateral breath sounds clear to auscultation [] Abdomen: Bowel sounds normal, soft, no tenderness, no masses, no pulsatile masses. [] Skin: Warm, dry, no erythema, no rash. [] Back: No tenderness, no CVA tenderness. [] Extremities: No tenderness, no cyanosis, no clubbing, ROM intact, no edema. [] Neurologic: Alert and oriented X 3, normal motor function, normal sensory function, no focal deficits noted. [] Psychologic: Affect normal, judgement normal, mood normal. [] Current Patient Data Vital Signs Vital Signs Date Time Temp Pulse Resp B/P (MAP) Pulse Ox O2 Delivery O2 Flow Rate FiO2 04/15/17 15:06 86 133/92 (106) 97 Room Air 04/15/17 13:10 97.9 18 97.9 Lab Values Laboratory Tests Test 04/15/17 14:30 White Blood Count 4.6 x10^3/uL (4.0-11.0) Red Blood Count 4.01 x10^6/uL (3.50-5.40) Hemoglobin 11.4 g/dL (12.0-15.5) L Hematocrit 34.7 % (36.0-47.0) L Mean Corpuscular Volume 87 fL (79-100) Mean Corpuscular Hemoglobin 28 pg (25-35) Mean Corpuscular Hemoglobin Concent 33 g/dL (31-37) Red Cell Distribution Width 15.0 % (11.5-14.5) H Platelet Count 256 x10^3/uL (140-400) Prothrombin Time 13.9 SEC (11.7-14.0) Prothrombin Time INR 1.1 (0.8-1.1) PTT 28 SEC (24-38) Laboratory Tests 04/15/17 14:30 EKG EKG [] Radiology/Procedures Radiology/Procedures [] Course & Med Decision Making Course & Med Decision Making Pertinent Labs and Imaging studies reviewed. (See chart for details) [] Dragon Disclaimer Dragon Disclaimer This electronic medical record was generated, in whole or in part, using a voice recognition dictation system. Departure Departure Impression: Primary Impression: Epistaxis Disposition: 01 HOME, SELF-CARE Condition: IMPROVED Referrals: MORRIS PALMA MD (PCP) Patient Instructions: Hypertension, Nosebleed Additional Instructions: Your nosebleed has been controlled by the nasal packing. Finish Keflex as prescribed to prevent sinusitis .Keep this in place until follow-up with your doctor in 2-3 days or alternatively you could get a referral from your doctor for follow-up with an ear nose and throat doctor (Dr Andrew [phone]). As another option you could follow up with [facility]. Your blood pressure was mildly elevated today consistent with your history of hypertension. Follow-up with your doctor for reevaluation and further treatment for optimal control of your blood pressure. Scripts Cephalexin (KEFLEX) 500 Mg Capsule 1 CAP PO QID for 5 Days, #20 CAP Prov: RICHELLE NUGENT MD 04/15/17 RICHELLE NUGENT MD Apr 15, 2017 16:47
== END 2017-04-15 16:48 | disposition home or self-care (01) ==
LOC: ER 12:56
DX: R04.0 Epistaxis (principal); K21.9 Gastro-esophageal reflux disease without esophagitis; I10 Essential (primary) hypertension; M79.7 Fibromyalgia
CPT/HCPCS: 36415; 85027; 85610; 85730; 99284

== ENCOUNTER → 2017-06-02 | Outpatient (CLI) | payer BC ==
[~2017-06-02] MED LIST changes: +CEPH-264 PO
--- NOTE | 2017-06-02 17:15 | RAD ---
Right wrist, 3 views, 06/02/2017: History: Fall, pain There are several small lucencies in the carpal bones, most numerous in the lunate. These likely represent cysts on an arthritic basis. No fracture is identified. There is mild widening of the scapholunate distance raising the possibility of ligamentous injury at this level. IMPRESSION: 1. Several small degenerative type cysts in the carpal bones. 2. Mild widening of the scapholunate distance raising the possibility of ligamentous injury at that level. Right thumb, 3 views, 06/02/2017: There is moderate degenerative change at the first MCP joint. No acute fracture or dislocation is identified. The soft tissues are unremarkable. IMPRESSION: 1. Moderate degenerative change at the first MCP joint. 2. No acute bony abnormality is detected.
== END | disposition home or self-care (01) ==
LOC: RAD 16:08
PROVIDERS: ATTEND Family Medicine
DX: M19.041 Primary osteoarthritis, right hand (principal)
CPT/HCPCS: 73110; 73140

== ENCOUNTER 2017-11-11 08:22 | Emergency (ER) | payer BC ==
[2017-11-11 09:03] LABS: ADD MAN DIFF? NO
[2017-11-11 09:08] LABS: BASO # 0.1 x10^3/uL (0.0-0.2); BASO % 1 % (0-3); EOS # 0.1 x10^3/uL (0.0-0.7); EOS % 1 % (0-3); HEMATOCRIT 36.3 % (36.0-47.0); LYMPH # 1.1 x10^3/uL (1.0-4.8); LYMPH % 19 % (24-48); MEAN CORPUSCULAR HEMOGLOBIN 28 pg (25-35); MEAN CORPUSCULAR HGB CONC 33 g/dL (31-37); MEAN CORPUSCULAR VOLUME 85 fL (79-100); MONO # 0.3 x10^3/uL (0.0-1.1); MONO % 5 % (0-9); NEUT # 4.3 x10^3uL (1.8-7.7); NEUT % 73 % (31-73); PLATELET COUNT 250 x10^3/uL (140-400); RED BLOOD COUNT 4.25 x10^6/uL (3.50-5.40); RED CELL DISTRIBUTION WIDTH 15.4 % (11.5-14.5); WHITE BLOOD COUNT 5.8 x10^3/uL (4.0-11.0)
[2017-11-11] MEDS: IV NORMAL SALINE 1000ML BAG 1,000 ML IV ×2 (09:11)
[2017-11-11] MEDS: ONDANSETRON PF 4 MG/2 ML VIAL. IV ×2 (09:11)
[2017-11-11] MEDS: hydrALAZINE 20 MG/ML VIAL. IVP ×2 (09:12)
[2017-11-11 09:30] LABS: ANION GAP 12 (6-14); BLOOD UREA NITROGEN 27 mg/dL (7-20); BUN/CREATININE RATIO 19 (6-20); CALCIUM 9.6 mg/dL (8.5-10.1); CARBON DIOXIDE 25 mmol/L (21-32); CHLORIDE 104 mmol/L (98-107); CREATININE 1.4 mg/dL (0.6-1.0); GFR 47.8; GLUCOSE 171 mg/dL (70-99); POTASSIUM 4.1 mmol/L (3.5-5.1); SODIUM 141 mmol/L (136-145)
[2017-11-11 09:32] LABS: TROPONINI 0.053 ng/mL (0.000-0.055)
[2017-11-11 09:35] LABS: ALBUMIN 3.7 g/dL (3.4-5.0); ALBUMIN/GLOBULIN RATIO 0.9 (1.0-1.7); ALK PHOS 109 U/L (46-116); ALT (SGPT) 40 U/L (14-59); AST (SGOT) 28 U/L (15-37); LIPASE 138 U/L (73-393); MAGNESIUM 1.8 mg/dL (1.8-2.4); TOTAL BILIRUBIN 0.3 mg/dL (0.2-1.0); TOTAL PROTEIN 7.6 g/dL (6.4-8.2)
[2017-11-11 09:39] LABS: THYROID STIM HORMONE (TSH) 1.765 uIU/mL (0.358-3.74)
[2017-11-11 09:41] LABS: NT-PRO BNP 79 pg/mL (0-124)
[2017-11-11 09:41] LABS: CKMB INDEX 0.7 % (0-4); CKMB MASS 2.5 ng/mL (0.0-3.6); CREATINE KINASE 366 U/L (26-192)
[2017-11-11 09:48] LABS: PROTHROMBIN TIME PATIENT 12.4 SEC (11.7-14.0)
[2017-11-11 10:13] LABS: BILIRUBIN,URINE NEGATIVE (NEG); CLARITY,URINE CLEAR; COLOR,URINE YELLOW; GLUCOSE,URINE NEGATIVE (NEG); NITRITE,URINE NEGATIVE (NEG); PH,URINE 5.5; PROTEIN,URINE NEGATIVE (NEG-TRACE); UROBILINOGEN,URINE 0.2 mg/dL (0.2 mg/dL)
[2017-11-11 10:14] LABS: BARBITURATES NEG (NEG); BENZODIAZEPINES NEG (NEG); CANNABINOIDS NEG (NEG); COCAINE NEG (NEG); METHADONE NEG (NEG); OPIATES NEG (NEG); PHENCYCLIDINE NEG (NEG)
[2017-11-11 10:26] LABS: AMPHETAMINE/METHAMPHETAMINE NEG (NEG); ETHANOL, URINE NEG (NEG)
[2017-11-11 10:28] LABS: BACTERIA,URINE 0 /HPF (0-FEW); RBC,URINE 0 /HPF (0-2); SQUAMOUS EPITHELIAL CELL,UR FEW /LPF; WBC,URINE 0 /HPF (0-4)
[2017-11-11] MEDS: KETOROLAC 30 MG/ML INJ. IV ×2 (10:58)
== END 2017-11-11 11:21 | disposition home or self-care (01) ==
LOC: ER 08:22
DX: I10 Essential (primary) hypertension (principal); M79.7 Fibromyalgia; K21.9 Gastro-esophageal reflux disease without esophagitis; G43.909 Migraine, unspecified, not intractable, without status migrainosus; G89.29 Other chronic pain; Z90.49 Acquired absence of other specified parts of digestive tract; Z98.51 Tubal ligation status
CPT/HCPCS: 36415; 70450; 71045; 80053; 80307; 81001; 82553; 83690; 83735; 83880; 84443; 84484; 85025; 85610; 93005; 96361; 96374; 96375; 99285-25; J0360; J1885; J2405; J7030

== ENCOUNTER 2017-12-11 17:11 | Emergency (ER) | payer BC ==
[2017-12-11] MEDS: MORPHINE SULFATE 4 MG/ML DISP.SYRIN. IV (17:59)
== END 2017-12-11 20:50 | disposition home or self-care (01) ==
LOC: ER 17:11
DX: S30.0XXA Contusion of lower back and pelvis, initial encounter (principal); I10 Essential (primary) hypertension; M51.36 Other intervertebral disc degeneration, lumbar region; M54.2 Cervicalgia; M25.531 Pain in right wrist; M25.532 Pain in left wrist; M79.7 Fibromyalgia; K21.9 Gastro-esophageal reflux disease without esophagitis; G89.29 Other chronic pain; G43.909 Migraine, unspecified, not intractable, without status migrainosus; Z90.49 Acquired absence of other specified parts of digestive tract; Z98.51 Tubal ligation status; V43.52XA Car driver injured in collision with other type car in traffic accident, initial encounter; Y93.I9 Activity, other involving external motion; Y92.410 Unspecified street and highway as the place of occurrence of the external cause; Y99.8 Other external cause status
CPT/HCPCS: 71045; 72125; 72128; 72131; 72170; 73110; 73562; 96374; 99284-25; J2270

== ENCOUNTER 2018-01-17 20:42 | Emergency (ER) | payer BC ==
[2018-01-17] MEDS: ASPIRIN CHEWABLE 81 MG TABLET. PO (21:45)
[2018-01-17] MEDS: KETOROLAC 30 MG/ML INJ. IV (21:45)
[2018-01-17] MEDS: METOCLOPRAMIDE HCL 10 MG/2 ML VIAL. IV (21:45)
[2018-01-17] MEDS: diphenhydrAMINE 50 MG/ML VIAL IVP (21:45)
[2018-01-17] MEDS: DEXAMETHASONE SOD PHOS 20 MG/5 ML VIAL. IV (21:45)
== END 2018-01-17 21:50 | disposition left against medical advice (07) ==
LOC: ER 20:42
DX: I10 Essential (primary) hypertension (principal); G43.909 Migraine, unspecified, not intractable, without status migrainosus; M79.7 Fibromyalgia; K21.9 Gastro-esophageal reflux disease without esophagitis; G89.29 Other chronic pain; Z90.49 Acquired absence of other specified parts of digestive tract; Z98.51 Tubal ligation status; Z79.899 Other long term (current) drug therapy
CPT/HCPCS: 93005; 99284

== ENCOUNTER → 2018-02-22 | Outpatient (CLI) | payer BC ==
[~2018-02-22] MED LIST changes: -AMLO10TA2 PO; -AMLO5TAB4 PO; -ASPI-630 PO; -ASPI1TAB30 PO; -ATOR20TA58 PO; -BUTA1TAB23 PO; -CEPH-264 PO; -DICL100G28 TP; -DOXY100C2 PO; -DULO60CA44 PO; -FLUT16SP NS; +IOHEXOL 180 MG/ML 10 ML VIAL.; -LABE200T2 PO; -LISI-334 PO; -LISI1TAB7 PO; -LORA10TA3 PO; -Labetalol Hcl PO; -METO25TA4 PO; -NITR0.4T SL; -OXYC1TAB7 PO; -PREG75CA PO; -RANI150T6 PO; -SPIR25TA3 PO; +methylPREDNISolone ACETATE 40 MG/ML VIAL.; +methylPREDNISolone ACETATE 80 MG/ML VIAL.
== END | disposition home or self-care (01) ==
LOC: PNCL 09:24
DX: M51.16 Intervertebral disc disorders with radiculopathy, lumbar region (principal); M48.061 Spinal stenosis, lumbar region without neurogenic claudication; I10 Essential (primary) hypertension; J45.909 Unspecified asthma, uncomplicated; K21.9 Gastro-esophageal reflux disease without esophagitis; M06.9 Rheumatoid arthritis, unspecified; Z98.51 Tubal ligation status; Z90.49 Acquired absence of other specified parts of digestive tract; Z98.890 Other specified postprocedural states; Z90.79 Acquired absence of other genital organ(s); Z90.721 Acquired absence of ovaries, unilateral; Z79.899 Other long term (current) drug therapy; M17.12 Unilateral primary osteoarthritis, left knee; Z80.51 Family history of malignant neoplasm of kidney; Z82.3 Family history of stroke; Z82.49 Family history of ischemic heart disease and other diseases of the circulatory system
CPT/HCPCS: 62323; J1030; J1040; Q9965

== ENCOUNTER → 2018-03-15 | Outpatient (CLI) | payer BC ==
[~2018-03-15] MED LIST changes: +LIDOCAINE 1% PF 2 ML VIAL.
== END | disposition home or self-care (01) ==
LOC: PNCL 15:42
DX: M51.16 Intervertebral disc disorders with radiculopathy, lumbar region (principal); M48.061 Spinal stenosis, lumbar region without neurogenic claudication; I10 Essential (primary) hypertension; Z90.49 Acquired absence of other specified parts of digestive tract; K21.9 Gastro-esophageal reflux disease without esophagitis; Z98.51 Tubal ligation status; Z98.890 Other specified postprocedural states; M79.7 Fibromyalgia; M06.9 Rheumatoid arthritis, unspecified; M17.12 Unilateral primary osteoarthritis, left knee; Z82.3 Family history of stroke; Z80.51 Family history of malignant neoplasm of kidney
CPT/HCPCS: 62323; J1030; J1040; Q9965

== ENCOUNTER → 2018-03-31 | Outpatient (CLI) | payer BC ==
[~2018-03-31] MED LIST changes: +BUPIVACAINE MPF 0.25% 30 ML VIAL.; -methylPREDNISolone ACETATE 40 MG/ML VIAL.
== END ==
LOC: PNCL 08:00
DX: M17.11 Unilateral primary osteoarthritis, right knee (principal); M51.16 Intervertebral disc disorders with radiculopathy, lumbar region; M48.061 Spinal stenosis, lumbar region without neurogenic claudication; Z90.49 Acquired absence of other specified parts of digestive tract; I10 Essential (primary) hypertension; F32.9 Major depressive disorder, single episode, unspecified; G43.909 Migraine, unspecified, not intractable, without status migrainosus; J45.909 Unspecified asthma, uncomplicated; M06.9 Rheumatoid arthritis, unspecified; K21.9 Gastro-esophageal reflux disease without esophagitis; Z98.51 Tubal ligation status; Z98.890 Other specified postprocedural states; Z90.721 Acquired absence of ovaries, unilateral; Z79.899 Other long term (current) drug therapy; Z82.3 Family history of stroke; Z82.49 Family history of ischemic heart disease and other diseases of the circulatory system; Z80.51 Family history of malignant neoplasm of kidney
CPT/HCPCS: 20610; 77002; J1040; J3490; Q9965

== ENCOUNTER 2018-04-15 14:49 | Emergency (ER) | payer BC | END 2018-04-15 16:40 | disposition home or self-care (01) | LOC: ER 16:40 | DX: S50.02XA Contusion of left elbow, initial encounter (principal); F32.9 Major depressive disorder, single episode, unspecified; K21.9 Gastro-esophageal reflux disease without esophagitis; I10 Essential (primary) hypertension; G43.909 Migraine, unspecified, not intractable, without status migrainosus; Z98.51 Tubal ligation status; Z90.49 Acquired absence of other specified parts of digestive tract; W10.9XXA Fall (on) (from) unspecified stairs and steps, initial encounter; Y93.89 Activity, other specified; Y92.89 Other specified places as the place of occurrence of the external cause; Y99.8 Other external cause status | CPT/HCPCS: 73080; 99284 ==

== ENCOUNTER → 2018-08-22 | Outpatient (CLI) | payer BC ==
[2018-04-15 15:55] VITALS: BP 120/86
[~2018-08-22] MED LIST changes: +AMLO10TA6 PO; +AMLO5TAB4 PO; +ASPI-630 PO; +ASPI1TAB31 PO; +ATOR20TA58 PO; -BUPIVACAINE MPF 0.25% 30 ML VIAL.; +BUTA1TAB23 PO; +CEPH-264 PO; +CYCL5TAB PO; +DICL100G28 TP; +DOXY100C2 PO; +DULO60CA44 PO; +FLUT16SP NS; +HYDR-971 PO; +HYDR50TA6 PO; -IOHEXOL 180 MG/ML 10 ML VIAL.; +LABE200T4 PO; -LIDOCAINE 1% PF 2 ML VIAL.; +LISI-334 PO; +LISI1TAB7 PO; +LORA10TA3 PO; +Labetalol Hcl PO; +MELO7.5T29 PO; +METO25TA4 PO; +NAPR-514 PO; +NITR0.4T SL; +OMEP20CA9 PO; +OXYC1TAB7 PO; +PREG75CA PO; +PROAIR HFA8.5 GM INH; +RANI150T21 PO; +SPIR25TA5 PO; +VALS80TA3 PO; +ZOLP10TA4 PO; -methylPREDNISolone ACETATE 80 MG/ML VIAL.
--- NOTE | 2018-08-22 16:21 | RAD ---
DATE: 08/22/2018 EXAM: DIGITAL SCREEN BILAT W/CAD HISTORY: Routine screening. Today's exam is the baseline. COMPARISON: None This study was interpreted with the benefit of Computerized Aided Detection (CAD). Breast Density: SCATTERED The breast parenchyma shows scattered fibroglandular densities. Breast parenchyma level B. FINDINGS: Focal asymmetry involves the right upper outer breast 7.8 cm deep to the nipple. It measures approximately 1 cm diameter. A small mass involving the left lower outer breast measuring 0.85 cm diameter is present 4.5 cm deep from the nipple. It is well-circumscribed. A smaller mass involving the left central breast at the middle one third anteriorly measuring less than 0.3 cm diameter is also present. It is well-circumscribed. No suspicious calcifications or distortion. IMPRESSION: Indeterminate findings. Spot compression imaging bilaterally recommended. Ultrasound bilaterally may be needed. BI-RADS CATEGORY: 0 INCOMPLETE: NEEDS ADDITIONAL IMAGING EVALUATION AND/OR PRIOR MAMMOGRAMS FOR COMPARISON. RECOMMENDED FOLLOW-UP: ADD ADDITIONAL IMAGING PQRS compliance statement: Patient information was entered into a reminder system with a target due date within the next few weeks for the next mammogram. Mammography is a sensitive method for finding small breast cancers, but it does not detect them all and is not a substitute for careful clinical examination. A negative mammogram does not negate a clinically suspicious finding and should not result in delay in biopsying a clinically suspicious abnormality. "Our facility is accredited by the [employer] Mammography Program."
== END | disposition home or self-care (01) ==
LOC: MAMMO 13:50
PROVIDERS: ATTEND Family Medicine
DX: Z12.31 Encounter for screening mammogram for malignant neoplasm of breast (principal)
CPT/HCPCS: 77067

== ENCOUNTER → 2018-08-24 | Outpatient (CLI) | payer BC ==
[2018-04-15 15:55] VITALS: BP 120/86
--- NOTE | 2018-08-24 15:34 | RAD ---
DATE: 08/24/2018 EXAM: DIGITAL DIAGNOSTIC BILATERAL HISTORY: Abnormal screening mammographic exam 08/22/2018 COMPARISON: 08/22/2018 screening mammogram This study was interpreted with the benefit of Computerized Aided Detection (CAD). Breast Density: SCATTERED The breast parenchyma shows scattered fibroglandular densities. Breast parenchyma level B. FINDINGS: Spot compression imaging of the right posterior outer breast in the CC projection and right upper breast in the MLO projection was performed. Spot compression imaging of the left outer breast was performed with 2 images of the left outer breast provided. The small masses involving the left outer breast are well demarcated and persists upon compression. The right upper outer breast asymmetry is less evident in the CC view and spot compression imaging. This finding is also less evident on spot compression MLO projection. IMPRESSION: Six-month mammographic follow bilaterally is recommended to assess stability. Ultrasound may be needed at that time. BI-RADS CATEGORY: 3 PROBABLY BENIGN FINDING(S)-SHORT INTERVAL FOLLOW-UP SUGGESTED RECOMMENDED FOLLOW-UP: 6M 6 MONTH FOLLOW-UP PQRS compliance statement: Patient information was entered into a reminder system with a target due date in 6 months for the next mammogram. Mammography is a sensitive method for finding small breast cancers, but it does not detect them all and is not a substitute for careful clinical examination. A negative mammogram does not negate a clinically suspicious finding and should not result in delay in biopsying a clinically suspicious abnormality. "Our facility is accredited by the [employer] Mammography Program."
== END | disposition home or self-care (01) ==
LOC: MAMMO 13:12
PROVIDERS: ATTEND Family Medicine
DX: R92.8 Other abnormal and inconclusive findings on diagnostic imaging of breast (principal)
CPT/HCPCS: 77066

== ENCOUNTER 2018-11-15 08:17 | Emergency (ER) | payer BC ==
[~2018-11-15] VITALS: Ht 157.5 cm; Wt 102.1 kg
[~2018-11-15 08:17] MED LIST changes: +ALBU2.5V8 INH; +HYDR-3164 PO; -HYDR-971 PO; -PROAIR HFA8.5 GM INH
[2018-11-15] MEDS ORDERED: cloNIDine HCL 0.1 MG TABLET PO ONE (09:00)
[2018-11-15] MEDS ORDERED: ONDANSETRON PF 4 MG/2 ML VIAL. IV ONE (09:00)
[2018-11-15] MEDS ORDERED: methylPREDNISolone SOD SUCC PF 125 MG/2 ML VIAL. IV ONE (09:00)
[2018-11-15] MEDS ORDERED: PROCHLORPERAZINE 10 MG/2 ML VIAL. IV ONE (09:00)
[2018-11-15] MEDS ORDERED: IV NORMAL SALINE 1000ML BAG 1,000 ML IV ONE (09:00)
--- NOTE | 2018-11-15 09:04 | PHYS DOC ---
Past Medical History Past Medical History: CHF, Depression, Fibromyalgia, GERD, Hypertension, Migraines, Other Additional Past Medical Histor: chronic knee pain,irreg periods,nose bleeds, DDD, PREDIABETES Past Surgical History: Cholecystectomy, , Tubal ligation, Other Additional Past Surgical Histo: right meniscus tear Alcohol Use: None Drug Use: None Adult General Chief Complaint Chief Complaint: HEADACHE HPI HPI Patient is a 53 year old AA female who presents to the ER with complaints of a left frontal headache located behind her left eye since 399. Pt reports a hx of migraines and states that these sx are similar to previous migraines. Pt reports nausea and intermittent blurred vision with movement. She denies any fever, neck pain, vomiting, dizziness, or ear pain. Pt states she came to the ER before the pain got too bad. She reports that she was seen by her PCP yesterday for HTN and prescribed clonidine for BP > 160/90, the pharmacy was out of the medication so she has not taken it yet. Currently, she rates the pain a 9/10 on the pain scale. She denies any difficulty speaking, weakness, incoordination, numbness, or tingling. Review of Systems Review of Systems Constitutional: Denies fever or chills [] Eyes: Denies redness, or eye pain; see HPI HENT: Denies nasal congestion or sore throat [] Respiratory: Denies cough or shortness of breath [] Cardiovascular: No additional information not addressed in HPI [] GI: Denies abdominal pain, nausea, vomiting, or diarrhea [] Musculoskeletal: Denies back pain or joint pain [] Integument: Denies rash or skin lesions [] Neurologic: See HPI Current Medications Current Medications Current Medications Medications (Trade) Dose Ordered Sig/[facility] Start Time Stop Time Status Last Admin Dose Admin Clonidine HCl (Catapres) 0.1 mg 1X ONCE 11/15/18 09:00 11/15/18 09:06 DC 11/15/18 09:13 0.1 MG Methylprednisolone Sodium Succinate (SOLU-Medrol 125MG VIAL) 125 mg 1X ONCE 11/15/18 09:00 11/15/18 09:06 DC 11/15/18 09:12 125 MG Ondansetron HCl (Zofran) 4 mg 1X ONCE 11/15/18 09:00 11/15/18 09:06 DC 11/15/18 09:12 4 MG Prochlorperazine Edisylate (Compazine) 10 mg 1X ONCE 11/15/18 09:00 11/15/18 09:06 DC 11/15/18 09:12 10 MG Sodium Chloride 1,000 ml @ 1,000 mls/hr 1X ONCE 11/15/18 09:00 11/15/18 09:59 DC 11/15/18 09:11 1,000 MLS/HR Allergies Allergies Allergies Coded Allergies Type Severity Reaction Last Updated Verified No Known Drug Allergies 09/10/16 No Physical Exam Physical Exam Constitutional: Well developed, well nourished, no acute distress, non-toxic appearance. [] HENT: Normocephalic, atraumatic, bilateral external ears normal, oropharynx moist, no oral exudates, nose normal. [] Eyes: PERRLA, EOMI, conjunctiva normal, no discharge. [] Neck: Normal range of motion, no tenderness, supple, no stridor. [] Cardiovascular:Heart rate regular rhythm, no murmur [] Lungs & Thorax: Bilateral breath sounds clear to auscultation [] Skin: Warm, dry, no erythema, no rash. [] Extremities: No cyanosis, no clubbing, ROM intact, no edema. [] Neurologic: Alert and oriented X 3, normal motor function, normal sensory function, no focal deficits noted. [] Psychologic: Affect normal, judgement normal, mood normal. [] Current Patient Data Vital Signs Vital Signs Date Time Temp Pulse Resp B/P (MAP) Pulse Ox O2 Delivery O2 Flow Rate FiO2 11/15/18 09:13 93 161/102 11/15/18 08:30 98.4 20 100 Room Air 98.4 EKG EKG [] Radiology/Procedures Radiology/Procedures [] Course & Med Decision Making Course & Med Decision Making Pertinent Labs and Imaging studies reviewed. (See chart for details) Dx: headache, hypertension Pt was given 125 mg of solumedrol, 10 mg of compazine, 4 mg of zofran, 1 L of NS IV and 0.1 mg PO clonidine. She denies any pain after these medications and reports feeling much better. Patient verbalized an understanding of home care, medications, follow-up, and return to ED instructions and was in agreement with the plan of care. [] Dragon Disclaimer Dragon Disclaimer This electronic medical record was generated, in whole or in part, using a voice recognition dictation system. Departure Departure Impression: Primary Impression: Headache Additional Impression: Malignant hypertension Referrals: MORRIS PALMA MD (PCP) Patient Instructions: General Headache Without Cause, [id number], Hypertension, [id number] Additional Instructions: Take your home medications as prescribed for hypertension and headaches. Follow up with your PCP this week, return to the ER if symptoms worsen. Problem Qualifiers Primary Impression: Headache Headache type: unspecified Headache chronicity pattern: acute headache Intractability: not intractable Qualified Codes: R51 - Headache HOANG RUSH APRN Nov 15, 2018 09:04
[2018-11-15 10:27] VITALS: BP 133/82
== END 2018-11-15 10:40 | disposition home or self-care (01) ==
LOC: ER 08:17
DX: G43.909 Migraine, unspecified, not intractable, without status migrainosus (principal); I11.0 Hypertensive heart disease with heart failure; I50.9 Heart failure, unspecified; F32.9 Major depressive disorder, single episode, unspecified; R11.0 Nausea; K21.9 Gastro-esophageal reflux disease without esophagitis; Z90.49 Acquired absence of other specified parts of digestive tract; Z98.890 Other specified postprocedural states; Z98.51 Tubal ligation status
CPT/HCPCS: 96374; 96375; 99283; J0780; J2405; J2930; J7030

== ENCOUNTER 2019-04-20 14:25 | Emergency (ER) | payer BC ==
[~2019-04-20] VITALS: Ht 165.1 cm; Wt 101.6 kg
[~2019-04-20 14:25] MED LIST changes: -AMLO10TA6 PO; +AMLO10TA8 PO; +OMEP20CA10 PO; -OMEP20CA9 PO; +RANI-376 PO; -RANI150T21 PO
[2019-04-20] MEDS ORDERED: IV NORMAL SALINE 1000ML BAG 1,000 ML IV SCH (15:17)
--- NOTE | 2019-04-20 15:22 | PHYS DOC ---
Past Medical History Past Medical History: CHF, Depression, Fibromyalgia, GERD, Hypertension, Migraines, Other Additional Past Medical Histor: chronic knee pain,irreg periods,nose bleeds, DDD, PREDIABETES Past Surgical History: Cholecystectomy, , Tubal ligation, Other Additional Past Surgical Histo: right meniscus tear Alcohol Use: None Drug Use: None Adult General Chief Complaint Chief Complaint: ABDOMINAL PAIN HPI HPI Patient is a 53 year old female who presents with 2 months of right lower quadrant cramping pain and vomiting but has slowly gotten worse where she is vomiting after every meal. States that her pain is an 8 out of 10 and her primary care Dr. Katherine Centeno sent her to the ED for further workup. Patient also complains of a frontal lobe migraine headache that is throbbing in nature. She states that this migraine feels slightly different due to the fact that it's a frontal headache and not to the back of the head. Patient states in the past d octor has tried laxatives she is also on omeprazole but neither of these things have helped her pain or her vomiting. Review of Systems Review of Systems Constitutional: Denies fever or chills [] Eyes: Denies change in visual acuity, redness, or eye pain [] HENT: Denies nasal congestion or sore throat [] Respiratory: Denies cough or shortness of breath [] Cardiovascular: No additional information not addressed in HPI [] GI: abdominal pain, nausea, vomiting, denies bloody stools or diarrhea [] : Denies dysuria or hematuria [] Musculoskeletal: Denies back pain or joint pain [] Integument: Denies rash or skin lesions [] Neurologic: headache, denies focal weakness or sensory changes [] Endocrine: Denies polyuria or polydipsia [] All other systems were reviewed and found to be within normal limits, except as documented in this note. Current Medications Current Medications Current Medications Medications (Trade) Dose Ordered Sig/[facility] Start Time Stop Time Status Last Admin Dose Admin Fentanyl Citrate (Fentanyl 2ml Vial) 50 mcg 1X ONCE 04/20/19 15:30 04/20/19 15:31 DC Iohexol (Omnipaque 300 Mg/ml) 75 ml 1X ONCE 04/20/19 15:45 04/20/19 15:46 DC 04/20/19 16:10 75 ML Pantoprazole Sodium (PROTONIX VIAL for IV PUSH) 40 mg 1X ONCE 04/20/19 15:30 04/20/19 15:31 DC Prochlorperazine Edisylate (Compazine) 10 mg 1X ONCE 04/20/19 15:30 04/20/19 15:31 DC Sodium Chloride 1,000 ml @ 1,000 mls/hr Q1H 04/20/19 15:17 04/20/19 16:16 DC 04/20/19 16:18 1,000 MLS/HR Allergies Allergies Allergies Coded Allergies Type Severity Reaction Last Updated Verified No Known Drug Allergies 09/10/16 No Physical Exam Physical Exam Constitutional: Well developed, well nourished, no acute distress, non-toxic appearance. [] HENT: Normocephalic, atraumatic, bilateral external ears normal, oropharynx moist, no oral exudates, nose normal. [] Eyes: PERRLA, EOMI, conjunctiva normal, no discharge. [] Neck: Normal range of motion, no tenderness, supple, no stridor. [] Cardiovascular:Heart rate regular rhythm, no murmur [] Lungs & Thorax: Bilateral breath sounds clear to auscultation [] Abdomen: Bowel sounds normal, soft, RLQ, epigastric tenderness, no masses, no pulsatile masses. [] Skin: Warm, dry, no erythema, no rash. [] Back: No tenderness, no CVA tenderness. [] Extremities: No tenderness, no cyanosis, no clubbing, ROM intact, no edema. [] Neurologic: Alert and oriented X 3, normal motor function, normal sensory function, no focal deficits noted. [] Psychologic: Affect normal, judgement normal, mood normal. [] Current Patient Data Vital Signs Vital Signs Date Time Temp Pulse Resp B/P (MAP) Pulse Ox O2 Delivery O2 Flow Rate FiO2 04/20/19 15:24 98.0 82 20 193/119 (143) 98 Room Air 98.0 Lab Values Laboratory Tests Test 04/20/19 15:03 04/20/19 15:06 04/20/19 15:28 White Blood Count 7.1 x10^3/uL (4.0-11.0) Red Blood Count 4.37 x10^6/uL (3.50-5.40) Hemoglobin 12.3 g/dL (12.0-15.5) Hematocrit 36.8 % (36.0-47.0) Mean Corpuscular Volume 84 fL (79-100) Mean Corpuscular Hemoglobin 28 pg (25-35) Mean Corpuscular Hemoglobin Concent 33 g/dL (31-37) Red Cell Distribution Width 15.3 % (11.5-14.5) H Platelet Count 263 x10^3/uL (140-400) Neutrophils (%) (Auto) 62 % (31-73) Lymphocytes (%) (Auto) 28 % (24-48) Monocytes (%) (Auto) 8 % (0-9) Eosinophils (%) (Auto) 2 % (0-3) Basophils (%) (Auto) 1 % (0-3) Neutrophils # (Auto) 4.4 x10^3/uL (1.8-7.7) Lymphocytes # (Auto) 2.0 x10^3/uL (1.0-4.8) Monocytes # (Auto) 0.6 x10^3/uL (0.0-1.1) Eosinophils # (Auto) 0.2 x10^3/uL (0.0-0.7) Basophils # (Auto) 0.1 x10^3/uL (0.0-0.2) Sodium Level 140 mmol/L (136-145) Potassium Level 4.5 mmol/L (3.5-5.1) Chloride Level 106 mmol/L (98-107) Carbon Dioxide Level 23 mmol/L (21-32) Anion Gap 11 (6-14) Blood Urea Nitrogen 22 mg/dL (7-20) H Creatinine 1.1 mg/dL (0.6-1.0) H Estimated GFR (Cockcroft-Gault) 62.9 BUN/Creatinine Ratio 20 (6-20) Glucose Level 102 mg/dL (70-99) H Calcium Level 9.2 mg/dL (8.5-10.1) Total Bilirubin 0.2 mg/dL (0.2-1.0) Aspartate Amino Transferase (AST) 25 U/L (15-37) Alanine Aminotransferase (ALT) 45 U/L (14-59) Alkaline Phosphatase 107 U/L (46-116) Troponin I Quantitative 0.035 ng/mL (0.000-0.055) Total Protein 7.6 g/dL (6.4-8.2) Albumin 3.5 g/dL (3.4-5.0) Albumin/Globulin Ratio 0.9 (1.0-1.7) L Lipase 123 U/L (73-393) Urine Collection Type Unknown Urine Color Yellow Urine Clarity Cloudy Urine pH 5.5 Urine Specific [place] 1.025 Urine Protein 30 mg/dL (NEG-TRACE) Urine Glucose (UA) Negative mg/dL (NEG) Urine Ketones (Stick) Negative mg/dL (NEG) Urine Blood Negative (NEG) Urine Nitrite Negative (NEG) Urine Bilirubin Negative (NEG) Urine Urobilinogen Dipstick 1.0 mg/dL (0.2 mg/dL) Urine Leukocyte Esterase Trace (NEG) Urine RBC 0 /HPF (0-2) Urine WBC 1-4 /HPF (0-4) Urine Squamous Epithelial Cells Many /LPF Urine Bacteria Moderate /HPF (0-FEW) Urine Mucus Mod /LPF Urine Opiates Screen Neg (NEG) Urine Methadone Screen Neg (NEG) Urine Barbiturates Neg (NEG) Urine Phencyclidine Screen Neg (NEG) Urine Amphetamine/Methamphetamine Neg (NEG) Urine Benzodiazepines Screen Neg (NEG) Urine Cocaine Screen Neg (NEG) Urine Cannabinoids Screen Neg (NEG) Urine Ethyl Alcohol Neg (NEG) POC Urine HCG, Qualitative Hcg negative (Negative) Laboratory Tests 04/20/19 15:03 Laboratory Tests 04/20/19 15:03 EKG EKG Sinus Rhythm and no STEMI.[] Interpretation Time: [address] Regalado Radiology/Procedures Radiology/Procedures [] Impressions: [facility] [address] [place], [place] [id number] IMAGING REPORT Signed PATIENT: ESTELLA WILSON ACCOUNT: [id number] : 1965 LOCATION: ER AGE: 53 SEX: F EXAM STATUS: REG ER ORD. PHYSICIAN: MATT SINGLETON APRN REASON: abd pain, vomiting PROCEDURE: CT ABD PELV W/ IV CONTRST ONLY CT ABD PELV W/ IV CONTRST ONLY Indication: Abdominal pain and vomiting. Symptoms for 2 weeks. Exposure: One or more of the following individualized dose reduction techniques were utilized for this examination: 1. Automated exposure control 2. Adjustment of the mA and/or kV according to patient size 3. Use of iterative reconstruction technique. Technique: Intravenous contrast was given. No oral contrast per request. Comparison: 01/26/2016. FINDINGS: Lung bases grossly clear. Liver and spleen unremarkable. Pancreas unremarkable. No evidence of adrenal mass. Kidneys demonstrate symmetric enhancement without hydronephrosis. Right renal lesion measures 15 mm, roughly similar size as the prior study. This measures 47 Hounsfield units, greater than a simple cyst. Previously seen left renal lesion or cyst is not well seen today. Gallbladder surgically absent. Aorta is tortuous without aneurysm. No significant lymph node enlargement. No significant small bowel distention. Colonic diverticulosis. No evidence of acute colitis. The appendix appears normal. No evidence of pneumoperitoneum or ascites. Urinary bladder is incompletely distended. No evidence of pelvic mass. Small fat-containing upper anterior abdominal wall defect/hernia. There is also small fat-containing anterior midline abdominal wall hernia, more inferiorly. Degenerative spondylosis. Mild retrolisthesis at the lumbosacral junction. IMPRESSION: 1. Right renal lesion measures greater than cystic density, could represent a solid mass or complex hemorrhagic cyst. Note that this does not appear to have changed much since the study from January 26, 2016 favoring benign etiology. Renal ultrasound could further characterize. 2. Colonic diverticulosis without evidence of acute colitis. Electronically signed by: Kang Lorenzo MD (04/20/2019 4:31 PM) [id number] DICTATED and SIGNED BY: KANG LORENZO MD DATE: 04/20/19 1631 Course & Med Decision Making Course & Med Decision Making Patient is a 53 year old female who presents with 2 months of right lower quadrant cramping pain and vomiting but has slowly gotten worse where she is vomiting after every meal. States that her pain is an 8 out of 10 and her primary care Dr. Katherine Centeno sent her to the ED for further workup. Patient also complains of a frontal lobe migraine headache that is throbbing in nature. She states that this migraine feels slightly different due to the fact that it's a frontal headache and not to the back of the head. Patient states in the past doctor has tried laxatives she is also on omeprazole but neither of these things have helped her pain or her vomiting. She states this morning she ate palestinian fries and then vomited them up. She denies fevers, chest pain, shortness of air, numbness or tingling, visual changes, weakness, dizziness. Abdomen is soft and tender at epigastric and right lower quadrant. Patient denies dysuria symptoms. Lungs are clear to auscultation all lobes. Patient states she was able to keep down her blood pressure medications this morning but does not think she was able to keep down any of her pain medications. Patient has fibromyalgia, hypertension, tubal ligation, S[place], , depression, CHF, GERD, migraines, right meniscus tear, chronic knee pain. She states she had a bowel movement that was normal for her today. She denies any diarrhea. Heart rate regular without murmur. Skin pink warm and dry. Mucous membranes are moist. She speaks in full clear sentences. Ambulatory with steady gait. PERRLA. CT shows 1. Right renal lesion measures greater than cystic density, could represent a solid mass or complex hemorrhagic cyst. Note that this does not appear to have changed much since the study from January 26, 2016 favoring benign etiology. Renal ultrasound could further characterize. 2. Colonic diverticulosis without evidence of acute colitis. I called Dr Xiomara Centeno and her PA returned my call. I let her know the results of the patients blood work and CT scan. Patient to Follow up with GI. Theresa Disclaimer Theresa Disclaimer This electronic medical record was generated, in whole or in part, using a voice recognition dictation system. Departure Departure Impression: Primary Impression: Abdominal pain Additional Impression: Nausea & vomiting Disposition: 01 HOME, SELF-CARE Condition: STABLE Referrals: XIOMARA CENTENO MD (PCP) KROEY GOMEZ MD Patient Instructions: Abdominal Pain (Nonspecific), Nausea and Vomiting Additional Instructions: Call Dr Foote office in the Morning to schedule follow up appointment. Problem Qualifiers Primary Impression: Abdominal pain Abdominal location: right lower quadrant Qualified Codes: R10.31 - Right lower quadrant pain Additional Impression: Nausea & vomiting Vomiting type: unspecified Vomiting Intractability: non-intractable Qualified Codes: R11.2 - Nausea with vomiting, unspecified MATT SINGLETON CAR DUMPER Apr 20, 2019 15:22
[2019-04-20 15:29] LABS: BASO # 0.1 x10^3/uL (0.0-0.2); BASO % 1 % (0-3); EOS # 0.2 x10^3/uL (0.0-0.7); EOS % 2 % (0-3); HEMATOCRIT 36.8 % (36.0-47.0); HEMOGLOBIN 12.3 g/dL (12.0-15.5); LYMPH % 28 % (24-48); MEAN CORPUSCULAR HEMOGLOBIN 28 pg (25-35); MEAN CORPUSCULAR HGB CONC 33 g/dL (31-37); MEAN CORPUSCULAR VOLUME 84 fL (79-100); MONO # 0.6 x10^3/uL (0.0-1.1); MONO % 8 % (0-9); NEUT # 4.4 x10^3/uL (1.8-7.7); NEUT % 62 % (31-73); PLATELET COUNT 263 x10^3/uL (140-400); RED BLOOD COUNT 4.37 x10^6/uL (3.50-5.40); RED CELL DISTRIBUTION WIDTH 15.3 % (11.5-14.5); WHITE BLOOD COUNT 7.1 x10^3/uL (4.0-11.0)
[2019-04-20] MEDS ORDERED: PROCHLORPERAZINE 10 MG/2 ML VIAL. IV ONE (15:30)
[2019-04-20] MEDS ORDERED: PANTOPRAZOLE IV PUSH 40 MG VIAL. IVP ONE (15:30)
[2019-04-20] MEDS ORDERED: fentaNYL PF VIAL 100 MCG/2 ML VIAL IV ONE (15:30)
[2019-04-20 15:34] LABS: BILIRUBIN,URINE NEGATIVE (NEG); CLARITY,URINE CLOUDY; COLOR,URINE YELLOW; NITRITE,URINE NEGATIVE (NEG); PH,URINE 5.5; PROTEIN,URINE 30 mg/dL (NEG-TRACE)
[2019-04-20 15:39] LABS: CALCIUM 9.2 mg/dL (8.5-10.1); CREATININE 1.1 mg/dL (0.6-1.0); GFR 62.9; POTASSIUM 4.5 mmol/L (3.5-5.1)
[2019-04-20 15:41] LABS: BARBITURATES NEG (NEG); BENZODIAZEPINES NEG (NEG); CANNABINOIDS NEG (NEG); COCAINE NEG (NEG); METHADONE NEG (NEG); OPIATES NEG (NEG); PHENCYCLIDINE NEG (NEG)
[2019-04-20 15:42] LABS: AMPHETAMINE/METHAMPHETAMINE NEG (NEG)
[2019-04-20 15:44] LABS: BACTERIA,URINE MODERATE /HPF (0-FEW); RBC,URINE 0 /HPF (0-2); SQUAMOUS EPITHELIAL CELL,UR MANY /LPF
--- NOTE | 2019-04-20 15:44 | EKG ---
[facility] [address] [place] [address] Test Date: 2019-04-20 Test Time: 15:31:08 Pat Name: ESTELLA WILSON Department: Room: Gender: F Records And Information Manager: : 1965 Requested By: MATT SINGLETON Order Number: [id number] Reading MD: Measurements Intervals [place] Rate: 74 P: 22 [place]: 176 QRS: 18 QRSD: 76 T: 43 QT: 368 QTc: 409 Interpretive Statements SINUS RHYTHM QRS(T) CONTOUR ABNORMALITY CONSIDER INFERIOR MYOCARDIAL DAMAGE POSSIBLY ABNORMAL ECG RI6.01 No previous ECG available for comparison
[2019-04-20 15:45] LABS: ALBUMIN 3.5 g/dL (3.4-5.0); ALBUMIN/GLOBULIN RATIO 0.9 (1.0-1.7); TOTAL BILIRUBIN 0.2 mg/dL (0.2-1.0); TOTAL PROTEIN 7.6 g/dL (6.4-8.2)
[2019-04-20] MEDS ORDERED: IOHEXOL 300 MG/ML 100ML VIAL. IV ONE (15:45)
--- NOTE | 2019-04-20 16:34 | RAD ---
CT ABD PELV W/ IV CONTRST ONLY Indication: Abdominal pain and vomiting. Symptoms for 2 weeks. Exposure: One or more of the following individualized dose reduction techniques were utilized for this examination: 1. Automated exposure control 2. Adjustment of the mA and/or kV according to patient size 3. Use of iterative reconstruction technique. Technique: Intravenous contrast was given. No oral contrast per request. Comparison: 01/26/2016. FINDINGS: Lung bases grossly clear. Liver and spleen unremarkable. Pancreas unremarkable. No evidence of adrenal mass. Kidneys demonstrate symmetric enhancement without hydronephrosis. Right renal lesion measures 15 mm, roughly similar size as the prior study. This measures 47 Hounsfield units, greater than a simple cyst. Previously seen left renal lesion or cyst is not well seen today. Gallbladder surgically absent. Aorta is tortuous without aneurysm. No significant lymph node enlargement. No significant small bowel distention. Colonic diverticulosis. No evidence of acute colitis. The appendix appears normal. No evidence of pneumoperitoneum or ascites. Urinary bladder is incompletely distended. No evidence of pelvic mass. Small fat-containing upper anterior abdominal wall defect/hernia. There is also small fat-containing anterior midline abdominal wall hernia, more inferiorly. Degenerative spondylosis. Mild retrolisthesis at the lumbosacral junction. IMPRESSION: 1. Right renal lesion measures greater than cystic density, could represent a solid mass or complex hemorrhagic cyst. Note that this does not appear to have changed much since the study from January 26, 2016 favoring benign etiology. Renal ultrasound could further characterize. 2. Colonic diverticulosis without evidence of acute colitis. Electronically signed by: Kang Lorenzo MD (04/20/2019 4:31 PM) [id number]
[2019-04-20 17:18] VITALS: BP 190/118
== END 2019-04-20 17:18 | disposition home or self-care (01) ==
LOC: ER 14:25
DX: R10.31 Right lower quadrant pain (principal); R10.13 Epigastric pain; R11.2 Nausea with vomiting, unspecified; G43.909 Migraine, unspecified, not intractable, without status migrainosus; I11.0 Hypertensive heart disease with heart failure; I50.9 Heart failure, unspecified; F32.9 Major depressive disorder, single episode, unspecified; K21.9 Gastro-esophageal reflux disease without esophagitis; G89.29 Other chronic pain; Z90.49 Acquired absence of other specified parts of digestive tract; Z98.890 Other specified postprocedural states; Z98.51 Tubal ligation status
CPT/HCPCS: 36415; 74177; 80053; 80307; 81001; 81025; 83690; 84484; 85025; 87086; 93005; 96361; 96374; 96375; 99285; C9113; J0780; J3010; J7030; Q9967

== ENCOUNTER → 2019-05-11 | Day surgery (SDC) | payer BC ==
[~2019-05-11] MED LIST changes: -DULO60CA44 PO; +DULO60CA45 PO; +IV RINGERS,LACTATED 1000ML 1,000 ML IV ONE; +LIDOCAINE 2% PF 5 ML VIAL. ONE; +PROPOFOL 20 ML IV ONE
[2019-05-11 14:39] VITALS: BP 139/90
== END ==
LOC: SURG 13:06
PROVIDERS: ATTEND Internal Medicine Gastroenterology
DX: K29.50 Unspecified chronic gastritis without bleeding (principal); K21.9 Gastro-esophageal reflux disease without esophagitis; I10 Essential (primary) hypertension; M19.90 Unspecified osteoarthritis, unspecified site; J45.909 Unspecified asthma, uncomplicated; M79.7 Fibromyalgia; Z79.899 Other long term (current) drug therapy; Z90.49 Acquired absence of other specified parts of digestive tract; Z98.51 Tubal ligation status; Z98.890 Other specified postprocedural states
CPT/HCPCS: 43235; J2001; J2704

== ENCOUNTER → 2019-05-18 | Outpatient (CLI) | payer BC ==
[2019-05-11 14:39] VITALS: BP 139/90
[~2019-05-18] MED LIST changes: -IV RINGERS,LACTATED 1000ML 1,000 ML IV ONE; -LIDOCAINE 2% PF 5 ML VIAL. ONE; -PROPOFOL 20 ML IV ONE
--- NOTE | 2019-05-18 14:21 | RAD ---
EXAM: Nuclear gastric emptying scan. HISTORY: Nausea and vomiting. Pain. COMPARISON: None. TECHNIQUE: Serial static images were obtained over the stomach following oral administration of 2 mCi of 99m-Tc sulfur colloid in an egg based meal. FINDINGS: The stomach empties into the small bowel without evidence of reflux in the area of the esophagus. The estimated time for half emptying of gastric contents, i.e. 'gastric emptying time' is 92 minutes (normal is 66 +/- 22 minutes). IMPRESSION: Mildly delayed gastric emptying half-time at 92 minutes. Electronically signed by: Leatha Vu MD (05/18/2019 2:19 PM) [place] [id number]
== END | disposition home or self-care (01) ==
LOC: NM 08:00
PROVIDERS: ATTEND Internal Medicine Gastroenterology
DX: K30 Functional dyspepsia (principal); I10 Essential (primary) hypertension; J45.909 Unspecified asthma, uncomplicated
CPT/HCPCS: 78264; A9541

== ENCOUNTER → 2022-01-14 | Outpatient (CLI) | payer BC, OTHER ==
[2019-05-11 14:39] VITALS: BP 139/90
[~2022-01-14] MED LIST changes: +AMLO-187 PO; -AMLO10TA8 PO; -DOXY100C2 PO; +DOXY100C3 PO; -HYDR50TA6 PO; +HYDR50TA9 PO; -LISI-334 PO; +LISI1TAB39 PO; -LISI1TAB7 PO; +LISI20TA18 PO; -NITR0.4T SL; +NITR0.4T24 SL; -OMEP20CA10 PO; +OMEP20CA16 PO; +PREG-9 PO; -PREG75CA PO
--- NOTE | 2022-01-14 16:43 | RAD ---
EXAMINATION: XR KNEE 1-2 VIEWS CLINICAL HISTORY: BILATERAL KNEE PAIN. RIGHT KNEE > LEFT, HX OF MENISCUS SX ON RIGHT. TECHNIQUE: XR KNEE 1-2 VIEWS Number of Images/Views: 4 COMPARISON: Right knee radiographs 05/24/2018, bilateral knee radiographs 12/11/2017 FINDINGS: Moderate to severe medial compartment narrowing, greater on the right. Moderate lateral compartment n arrowing, greater on the left. Bilateral small tricompartmental marginal osteophytes. No acute fractu re. Questionable small joint effusions. IMPRESSION: Degenerative changes bilateral knees as described, greatest in the right medial compartment. Electronically signed by: Chance Michael DO (01/14/2022 4:41 PM) [id number]
== END ==
LOC: RAD 11:57
PROVIDERS: ATTEND Family Medicine
DX: Z02.71 Encounter for disability determination (principal); M17.0 Bilateral primary osteoarthritis of knee; M25.761 Osteophyte, right knee; M25.862 Other specified joint disorders, left knee; M25.861 Other specified joint disorders, right knee; Z87.828 Personal history of other (healed) physical injury and trauma
CPT/HCPCS: 73560-50